=== PATIENT | male | born 1950 | race African-American/Black ===

== ENCOUNTER 2020-11-02 05:55 | Inpatient (IN) | payer MEDICARE, OTHER, SELFPAY ==
[2020-11-02] VITALS (25 sets, daily range): BP systolic 117–149; BP diastolic 64–95; PULSE 96–123; RESP 12–27; TEMP 36.4–38.2; O2SAT 95–100; BMI 31.1
--- NOTE | ~2020-11-02 | XR_ITS ---
EXAMINATION: XR chest 1V portable INDICATION: Shortness of breath TECHNIQUE: Portable AP chest at 0633 hours COMPARISON: 06/01/2019 FINDINGS: 30 minimal airspace opacities of the lung bases. No pleural effusion or pneumothorax is radha ntified. Cardiomegaly is noted. Median sternotomy wires are consistent with prior cardiac surgery. IMPRESSION: 1. Minimal bibasilar airspace opacity, consistent with atelectasis versus pneumonia. Reviewed, dictated and finalized at location A. [facility] IMPRESSION: 1. Minimal bibasilar airspace opacity, consistent with atelectasis versus pneum onia.
--- NOTE | 2020-11-02 06:05 | ED.FEVER ---
HPI - Fever General Chief Complaint: Fever Stated Complaint: Fever Time Seen by Provider: 11/02/20 06:05 Source: patient Mode of arrival: ambulatory Limitations: no limitations History of Present Illness HPI Narrative: Patient is a 70-year-old male with a history of hypertension, hyperlipidemia, type 2 diabetes, heart transplant, HI and cardiac arrest in 2018, congestive heart failure who presents for evaluation of fever as well as cough and mild shortness of breath. Patient states he has had intermittent fever to 102 Fahrenheit over the past 4 days. Patient states that he has had a dry cough and runny nose. He denies any chest pain or abdominal pain. No loss of sense of taste or smell. No dysuria or hematuria. He denies abdominal pain. He does report some nausea with one episode of emesis this morning. Patient has been compliant with all of his medications. No lightheadedness or dizziness. No severe headache or sore throat. No recent sick contacts. He lives with his who is well. He denies any lower leg swelling or leg pain. [facility] [place] [facility] [place]. Related Data Allergies Allergy/AdvReac Type Severity Reaction Status Date / Time lisinopril Allergy Mild cough Verified 06/01/19 03:35 Review of Systems Review of Systems: Narrative: CONSTITUTIONAL: Reports fever and chills EYES: Denies visual changes, redness, or discharge. ENT: Reports rhinorrhea without sore throat CARDIOVASCULAR: Denies chest pain, palpitations, or edema. RESPIRATORY: Reports dry cough and mild shortness of breath GASTROINTESTINAL: Denies abdominal pain, reports nausea and vomiting GENITOURINARY: Denies dysuria or hematuria. SKIN: Denies rash or itching. MUSCULOSKELETAL: Denies back pain, joint pain, reports myalgias NEUROLOGIC: Denies headache, numbness, or weakness. [facility] Past Medical History Medical History Anemia Angina at rest Congestive heart failure Diabetes Gout Heart attack Hyperlipidemia Hypertension Pneumonia Surgical History Surgical History (Updated 11/02/20 @ 06:07 by Elaine Sethi MD) Heart transplanted History of tonsillectomy Exam Narrative: Exam Narrative: GENERAL: Awake, alert, conversant HEAD: Normocephalic, atraumatic. EYES: PERRLA and EOMI. ENT: Nares clear, no rhinorrhea or epistaxis. Mucous membranes moist. NECK: Supple. CHEST: No respiratory distress, breathing even and non labored, no wheezing, no crackles HEART: Tachycardic rate, sinus rhythm ABDOMEN:Non distended, non tender EXTREMITIES: Normal range of motion. No edema. SKIN: Warm, dry, no rash. NEURO:No focal deficits. Alert and oriented x3. Ambulatory, narrow based, steady gait, no ataxia. Full strength in the upper and lower extremities. Course Vital Signs Vital signs: Vital Signs Temperature 38.2 C H 11/02/20 06:00 Pulse Rate 123 H 11/02/20 06:00 Respiratory Rate 12 11/02/20 06:00 Blood Pressure 149/86 H 11/02/20 06:00 Pulse Oximetry 97 11/02/20 06:00 Temperature 38.2 C H 11/02/20 06:00 Pulse Rate 123 H 11/02/20 06:00 Respiratory Rate 14 11/02/20 06:25 Blood Pressure 149/86 H 11/02/20 06:00 Pulse Oximetry 97 11/02/20 06:00 MDM - Fever MDM Narrative Medical decision making narrative: Patient presented for evaluation of fever, cough and shortness of breath. At the time of assessment, patient is febrile and tachycardic. No hypoxia or tachypnea, no franchesca respiratory distress. Patient does not have any focal lung findings on exam. Laboratory results notable for some subtle worsening of his chronic issues such as he has acute on chronic kidney injury with a slightly elevation in creatinine from baseline, he has a chronically elevated troponin, he has an elevated BNP. PT meeting sepsis criteria, however did not want to administer 30 ml/kg fluid bolus as can worsen COVID and given patient's history of heart failure
--- NOTE | 2020-11-02 06:08 | PC.NURSE ---
Pt. cell number is [phone]
--- NOTE | 2020-11-02 06:09 | ECG_ITS ---
Measurements Intervals [place] Rate: 106 P: 2 NV: 124 QRS: 82 QRSD: 149 T: 12 QT: 365 QTc: 485 Interpretive Statements SINUS TACHYCARDIA RIGHT BUNDLE BRANCH BLOCK CONSIDER INFERIOR INFARCT, AGE INDETERMINATE ABNORMAL ECG Electronically Signed On 11-02-2020 7:42:01 VOCATIONAL REHAB CONSULTANT by Carlton Pelaez D.O.
[2020-11-02] MEDS: SODIUM CHLORIDE 0.9% IV 1,000 ML 999 ML IV CONT (06:30)
[2020-11-02 06:33] LABS: Basophils Percent Auto 0.1 % (0.2-1.2); Eosinophils Percent Auto 0.1 % (0-4.4); Hematocrit 38.5 % (42.0-52.0); Hemoglobin 13.3 g/dL (14.0-18.0); Immature Granulocyte Absolute 0.09 K/mm3 (0.00-0.031); Immature Granulocyte Percent A 1.2 % (0-0.5); Immature Platelet Fraction Pct 3.3 % (0.9-11.2); Lymphocytes Absolute Auto 1.43 K/mm3 (0.9-3.2); Lymphocytes Percent Auto 19.6 % (18.3-44.2); Mean Corpuscular HGB Conc 34.5 g/dl (32-36); Mean Corpuscular Hemoglobin 28.5 pg (26-34); Mean Corpuscular Volume 82.6 fl (80-100); Mean Platelet Volume 10.7 fl (7.4-10.4); Monocytes Absolute Auto 1.2 K/mm3 (0.1-0.6); Monocytes Percent Auto 15.8 % (2.6-8.5); Neutrophils Absolute Auto 4.6 K/mm3 (1.3-6.7); Neutrophils Percent Auto 63.2 % (45.5-73.1); Platelet Count Result 105 k/mm3 (150-375); Red Blood Count 4.66 M/mm3 (4.6-6.20); Red Cell Distribution Width 14.8 % (11.5-14.5); White Blood Count 7.3 K/mm3 (4.5-10.0)
[2020-11-02 06:53] LABS: INR 1.2; Prothrombin Time 15.6 Seconds (11.1-14.7)
[2020-11-02 06:54] LABS: Partial Thromboplastin Time 32.5 SECONDS (22.3-36.8)
[2020-11-02 06:57] LABS: Alanine Aminotransferase 43 U/L (4-50); Albumin Level 3.8 g/dL (3.5-5.1); Alkaline Phosphatase 61 U/L (38-126); Anion Gap 8 mmol/L (8-16); Aspartate Amino Transferase 55 U/L (17-59); Bilirubin,Total 0.6 mg/dL (0.2-1.3); Blood Urea Nitrogen 51 mg/dL (9-20); Calcium 8.8 mg/dL (8.4-10.2); Carbon Dioxide 27 mmol/L (22-30); Chloride 100 mmol/L (98-107); Estimated CRCL calculation 22 ml/min; Estimated Glomerular Filt Rate 27; Glucose 144 mg/dL (75-110); Potassium 4.1 mmol/L (3.4-5.0); Sodium 135 mmol/L (137-145)
[2020-11-02 07:03] LABS: NT Pro B Type Natriuretic Pept 1590 PG/ML (5-100); Troponin I 0.045 ng/mL (0.000-0.034)
--- NOTE | 2020-11-02 07:05 | PC.NURSE ---
report to Daniel BUTLER
[2020-11-02 08:23] LABS: Add Urine Microscopic? YES; Appearance Urine Clear (Clear); Bilirubin Urine Negative (Negative); Blood Urine Negative (Negative); Color Urine Yellow (Yellow); Glucose Urine UA 1+ mg/dL (Negative); Ketones Urine Negative (Negative); Leukocyte Esterase Ur Negative LEU/UL (Negative); Mucus Urine Rare /lpf; Nitrate Urine Negative (Negative); Protein Urine 3+ mg/dL (Negative); Specific Grav Ur 1.017 (1.001-1.035); Urobilinogen Urine Negative mg/dL (<2.0); WBC Urine 0-3 /hpf
[2020-11-02 10:35] LABS: Troponin I 0.046 ng/mL (0.000-0.034)
[2020-11-02 12:11] LABS: Glucose Point of Care 165 (65-105)
[2020-11-02 13:14] LABS: Hemoglobin A1C 10.5 % (<5.7)
[2020-11-02 13:31] LABS: Troponin I 0.045 ng/mL (0.000-0.034)
[2020-11-02 16:30] LABS: SARS-CoV-2 RNA PCR Positive
--- NOTE | 2020-11-02 16:31 | PM.IMHP ---
H&P: HPI History of Present Illness Date/Time: 11/02/20 16:31 Chief Complaint: Fever Narrative: Cody Chowdhury Jr. is a 70 year old male male with history hypertension, diabetes, hyperlipidemia, heart transplant 20 years ago, status post cardiac arrest in 2018, he presented emergency department with a complaint fever as high as 102, feeling malaise, fatigue, dry cough and runny nose, patient is suspected having COVID-19 and being isolated in tasted, will follow-up on the test result meanwhile will continue and monitor patient temperature oxygen requirement, if patient is positive further treatment recommendation to follow. Review of Systems Review of Systems: All systems reviewed & are unremarkable except as noted in HPI and below PMFSH Past Medical History Medical History Anemia Angina at rest Congestive heart failure Diabetes Gout Heart attack Hyperlipidemia Hypertension Pneumonia Surgical History Surgical History (Updated 11/02/20 @ 06:07 by Elaine Sethi MD) Heart transplanted History of tonsillectomy Family History Family History (Updated 11/02/20 @ 11:16 by Jemal Solomon RN) Father Pancreatic cancer Sibling Pancreatic cancer Diabetes mellitus Sibling Congestive heart failure Social History Social History Smoking status: Never smoker Second hand tobacco smoke exposure: No Alcohol intake: never Substance use: never Spiritual care concerns: No Meds Home Medications and Allergies Home Medications Medication Instructions Recorded Confirmed Type allopurinol 200 mg PO DAILY 11/02/20 11/02/20 History aspirin [Adult Aspirin] 81 mg PO DAILY 11/02/20 11/02/20 History atorvastatin 40 mg PO HS 11/02/20 11/02/20 History cholecalciferol (vitamin D3) 25 mcg PO DAILY 11/02/20 11/02/20 History clopidogrel 75 mg PO DAILY 11/02/20 11/02/20 History clotrimazole 1 applic TOPICAL BID 11/02/20 11/02/20 History furosemide 20 mg PO DAILY 11/02/20 11/02/20 History insulin aspart U-100 [Novolog See Rx Instructions .ROUTE .COMPLEX 11/02/20 11/02/20 History Flexpen U-100 Insulin] insulin glargine 44 unit SUBCUT QAM 11/02/20 11/02/20 History magnesium oxide 400 mg PO TID 11/02/20 11/02/20 History metoprolol succinate 50 mg PO DAILY 11/02/20 11/02/20 History omega-3 fatty acids-vitamin E 2 cap PO BID 11/02/20 11/02/20 History [Fish Oil] prednisone 5 mg PO DAILY 11/02/20 11/02/20 History semaglutide 0.75 mg SUBCUT WEEKLY 11/02/20 11/02/20 History sildenafil 100 mg PO DAILY PRN 11/02/20 11/02/20 History sirolimus 2 mg PO DAILY 11/02/20 11/02/20 History tacrolimus 0.5 mg PO .QAM 11/02/20 11/02/20 History tacrolimus 1 mg PO Q12H 11/02/20 11/02/20 History tamsulosin 0.4 mg PO HS 11/02/20 11/02/20 History zinc oxide 1 applic TOPICAL DAILY 11/02/20 11/02/20 History Allergies Allergy/AdvReac Type Severity Reaction Status Date / Time lisinopril Allergy Mild Swelling Verified 11/02/20 11:26 Vital Signs Vital Signs - 24 hr 11/02/20 06:00 11/02/20 06:25 11/02/20 07:00 Temperature 100.8 F H Pulse Rate 123 H 108 H Respiratory Rate 12 14 25 H Blood Pressure 149/86 H Pulse Oximetry 97 95 11/02/20 07:14 11/02/20 07:15 11/02/20 07:16 Temperature Pulse Rate 107 H 107 H 107 H Respiratory Rate 25 H 25 H 21 H Blood Pressure 123/86 131/82 Pulse Oximetry 95 95 95 11/02/20 07:30 11/02/20 07:45 11/02/20 07:46 Temperature Pulse Rate 106 H 107 H 108 H Respiratory Rate 23 H 13 21 H Blood Pressure 127/89 Pulse Oximetry 95 11/02/20 08:00 11/02/20 08:01 11/02/20 08:15 Temperature Pulse Rate 106 H 106 H 103 H Respiratory Rate 27 H 22 H 20 Blood Pressure 121/86 Pulse Oximetry 99 97 98 11/02/20 08:16 11/02/20 08:36 11/02/20 08:45 Temperature Pulse Rate 104 H 104 H 103 H Respiratory Rate 19 20 20 Blood Pressure 138/93 H Pulse Oximetry 98 99 99 11/02/20 10:00 11/02/20 10:53 10/12
[2020-11-02 17:02] LABS: Glucose Point of Care 311 (65-105)
[2020-11-02] MEDS: INSULIN ASPART (*BKC) 100 UNITS/ML SUB-Q (17:08)
[2020-11-02] MEDS: MAGNESIUM OXIDE 400 MG TABLET PO (17:08)
[2020-11-02] MEDS: OMEGA 3 POLYUNSAT FATTY ACIDS 1 GM CAP 2 GM PO (17:08)
--- NOTE | 2020-11-02 18:48 | PHAR ---
Tacrolimus and Sirolimus prescription bottles seen in pharmacy and returned to IMU nursing unit
--- NOTE | 2020-11-02 19:04 | ADMGEN ---
This patient, Cody Chowdhury Jr., was admitted to IMU Room 212-01 on 11-02-2020 at 0830. Patient/family oriented to hospital policies and general routines including ID bracelet, bed and alarms, visiting hours, pain management, procedures, bathroom and other care routines, personal items, smoking policy, room service/diet, and visiting hours. Information on how to activate the Rapid Response Team has been discussed. Patient/Family are encouraged to report perceived risks to care and to ask questions if they do not understand what they are told or what they should do.
[2020-11-02 20:09] LABS: Glucose Point of Care 229 (65-105)
[2020-11-02] MEDS: TAMSULOSIN HCL 0.4 MG CAPSULE PO (21:16)
[2020-11-02] MEDS: ATORVASTATIN 40 MG TABLET PO (21:16)
[2020-11-03] VITALS (17 sets, daily range): BP systolic 122–147; BP diastolic 82–95; PULSE 94–118; RESP 16–18; TEMP 36.5–37.9; O2SAT 96–100
--- NOTE | 2020-11-03 00:35 | ECG_ITS ---
Measurements Intervals [place] Rate: 117 P: 29 [place]: 120 QRS: 67 QRSD: 138 T: 12 QT: 343 QTc: 479 Interpretive Statements SINUS TACHYCARDIA POSSIBLE LEFT ATRIAL ENLARGEMENT RIGHT BUNDLE BRANCH BLOCK CONSIDER INFERIOR INFARCT, AGE INDETERMINATE ABNORMAL ECG Electronically Signed On 11-04-2020 11:01:09 PROCESS DEVELOPER by Carlton Pelaez D.O.
[2020-11-03] MEDS: ACETAMINOPHEN 325 MG TABLET 650 MG PO (03:43)
[2020-11-03 07:05] LABS: Basophils Percent Auto 0.2 % (0.2-1.2); Eosinophils Percent Auto 0.2 % (0-4.4); Hematocrit 37.3 % (42.0-52.0); Immature Granulocyte Absolute 0.06 K/mm3 (0.00-0.031); Immature Platelet Fraction Pct 3.7 % (0.9-11.2); Lymphocytes Absolute Auto 1.16 K/mm3 (0.9-3.2); Lymphocytes Percent Auto 19.9 % (18.3-44.2); Mean Corpuscular HGB Conc 34.9 g/dl (32-36); Mean Corpuscular Hemoglobin 28.9 pg (26-34); Mean Corpuscular Volume 82.9 fl (80-100); Mean Platelet Volume 10.3 fl (7.4-10.4); Monocytes Absolute Auto 0.8 K/mm3 (0.1-0.6); Monocytes Percent Auto 14.2 % (2.6-8.5); Neutrophils Absolute Auto 3.8 K/mm3 (1.3-6.7); Neutrophils Percent Auto 64.5 % (45.5-73.1); Platelet Count Result 86 k/mm3 (150-375); Red Cell Distribution Width 14.7 % (11.5-14.5); White Blood Count 5.8 K/mm3 (4.5-10.0)
[2020-11-03 07:26] LABS: Alanine Aminotransferase 43 U/L (4-50); Albumin Level 3.4 g/dL (3.5-5.1); Alkaline Phosphatase 59 U/L (38-126); Anion Gap 10 mmol/L (8-16); Aspartate Amino Transferase 62 U/L (17-59); Bilirubin,Total 0.6 mg/dL (0.2-1.3); Blood Urea Nitrogen 45 mg/dL (9-20); Calcium 8.3 mg/dL (8.4-10.2); Carbon Dioxide 23 mmol/L (22-30); Chloride 100 mmol/L (98-107); Estimated CRCL calculation 25 ml/min; Estimated Glomerular Filt Rate 30; Glucose 194 mg/dL (75-110); Potassium 3.8 mmol/L (3.4-5.0); Sodium 133 mmol/L (137-145)
--- NOTE | 2020-11-03 08:38 | PM.CNCAR ---
Assessment and Plan Assessment and plan (1) Elevated troponin: Code(s): R77.8 - Other specified abnormalities of plasma proteins Status: Acute Assessment and Plan: Flat nonspecific troponin elevation likely secondary to demand ischemia from COVID infection. No chest pain or EKG suggestive of ischemia. (2) Elevated brain natriuretic peptide (BNP) level: Code(s): R79.89 - Other specified abnormal findings of blood chemistry Status: Acute Assessment and Plan: Mildly elevated brain atretic peptide in setting of stage 3 chronic kidney disease. Non-specific. Patient does not appear to be in heart failure (3) Heart transplant recipient: Code(s): Z94.1 - Heart transplant status Status: Acute Assessment and Plan: He follows up at the [facility] and in [place]. I tried to contact the [facility] branch because patient received the transplant heart at that location and the phone number was [phone] however it was a vacation and day of today. And I could not talk to anyone. (4) COVID-19: Code(s): U07.1 - COVID-19 Status: Acute Assessment and Plan: Active COVID infection. He is febrile. Supportive care. History of Present Illness History of Present Illness Consult date/time: Date of ovyfujh26/24/20 08:38 Requesting physician: Lucio Jj MD Consult reason: chest pain Reason For Visit: Sepsis, pneumonia Narrative: this is 70-year-old patient with past medical history gout ,diabetes, CKD stage 3, baseline creatinine around 2.3 to 2.6,hyperlipidemia heart transplant 20 years ago, status post cardiac arrest in 2018, he presented emergency department with a complaint fever as high as 102, feeling malaise, fatigue, dry cough and runny nose, and patient tested positive for COVID. Temperature on admission 38.2 and currently 37.9. oxygen saturation within normal. Denies chest pain. He was complaining of mild shortness of breath. Normal white cell count, platelet count 86 K, troponins x3 0.045, creatinine 2.6, chest x-ray reviewed myself shows minimal infiltrates . EKG reviewed myself shows sinus tachycardia, right bundle branch block. Review of Systems Constitutional: Constitutional: Reports chills, Reports fatigue, Denies fever(s), Denies poor appetite and Reports weakness Eyes: Eyes: Denies eye discharge, Denies loss of vision, Denies eye pain and Denies photophobia ENT: Denies dizziness, Denies epistaxis, Reports nasal congestion, Reports nasal discharge and Denies sore throat Cardiovascular: Cardiovascular: Denies chest pain, Denies syncope, Denies pedal edema, Denies leg edema, Denies palpitations, Denies dyspnea, Denies dyspnea on exertion and Denies orthopnea Respiratory: Respiratory: Denies cough, Reports dyspnea, Reports dyspnea on exertion and Denies wheezing Gastrointestinal: Gastrointestinal: Denies abdominal pain, Denies diarrhea, Denies nausea and Denies vomiting Genitourinary: Genitourinary: Denies hematuria, Denies genital lesions and Denies dysuria Musculoskeletal: Musculoskeletal: Denies arthralgias, Denies joint swelling and Denies numbness Integumentary/Breasts: Skin/Breast: Denies pruritus and Denies rash Neurologic: Denies dizziness, Denies syncope, Denies loss of vision and Denies numbness Psychiatric: Psychiatric: Denies anxiety and Denies depression Endocrine: Endocrine: Denies cold intolerance, Denies heat intolerance and Denies palpitations Hematologic/Lymphatic: Hematologic/Lymphatic: Denies easy bleeding and Denies easy bruising Allergic/Immunologic: Allergic/Immunologic: Denies GI upset with certain foods, Denies urticaria and Denies wheezing PMFSH Past Medical History Medical History Anemia Angina at rest Congestive heart failure Diabetes Gout Heart attack Hyperlipidemia Hypertension Pneumonia Surgical History Surgical H
[2020-11-03] MEDS: INSULIN GLARGINE (*BKC) 100 UNITS/ML 44 UNITS SUB-Q (10:11)
[2020-11-03] MEDS: OMEGA 3 POLYUNSAT FATTY ACIDS 1 GM CAP 2 GM PO ×2 (10:11→17:36)
[2020-11-03] MEDS: MAGNESIUM OXIDE 400 MG TABLET PO ×3 (10:11→17:37)
[2020-11-03] MEDS: allopurinoL 100 MG TABLET 200 MG PO (10:12)
[2020-11-03] MEDS: CLOPIDOGREL BISULFATE 75 MG TABLET PO (10:12)
[2020-11-03] MEDS: predniSONE 5 MG TABLET PO (10:12)
[2020-11-03] MEDS: METOPROLOL SUCCINATE EXT REL 50 MG TABCR PO (10:12)
[2020-11-03] MEDS: FUROSEMIDE 20 MG TABLET PO (10:12)
[2020-11-03] MEDS: ASPIRIN 81 MG ENTERIC TABLET PO (10:12)
[2020-11-03] MEDS: CHOLECALCIFEROL 1,000 UNITS TABLET 1000 UNITS PO (10:12)
[2020-11-03] MEDS: MICONAZOLE NITRATE 2% CREAM 30 GM TUBE 1 APPLIC TOPICAL ×2 (10:14→17:37)
[2020-11-03] MEDS: ZINC OXIDE 20% OINT 30 GM TUBE 1 APPLIC TOPICAL (10:14)
--- NOTE | 2020-11-03 11:25 | PM.CNPUL ---
Assessment and Plan Additional Plan COVID positivity in this 70-year-old heart transplantation ( 20 years ago for cardiomyopathy) patient. Baseline prednisone 5 mg q.d. dose noted. Oxygenation at this point appears satisfactory. Will follow with you. 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 Ongoing Rx includes prednisone 5 mg q.d. Admitted with some increase in troponin level. COVID found to be positive. Yet oxygenation has remained satisfactory on ambient air. Review of Systems Review of Systems: Narrative: Has not smoked since age 23 or so. FOR[facility]LY [facility], [facility] Past Medical History Medical History Anemia Angina at rest Congestive heart failure Diabetes Gout Heart attack Hyperlipidemia Hypertension Pneumonia Surgical History Surgical History Heart transplanted History of tonsillectomy Family History Family History Father Pancreatic cancer Sibling Pancreatic cancer Diabetes mellitus Sibling Congestive heart failure Social History Social History Smoking status: Never smoker Second hand tobacco smoke exposure: No Alcohol intake: never Substance use: never Spiritual care concerns: No Meds Home Medications and Allergies Home Medications Medication Instructions Recorded Confirmed Type allopurinol 200 mg PO DAILY 11/02/20 11/02/20 History aspirin [Adult Aspirin] 81 mg PO DAILY 11/02/20 11/02/20 History atorvastatin 40 mg PO HS 11/02/20 11/02/20 History cholecalciferol (vitamin D3) 25 mcg PO DAILY 11/02/20 11/02/20 History clopidogrel 75 mg PO DAILY 11/02/20 11/02/20 History clotrimazole 1 applic TOPICAL BID 11/02/20 11/02/20 History furosemide 20 mg PO DAILY 11/02/20 11/02/20 History insulin aspart U-100 [Novolog See Rx Instructions .ROUTE .COMPLEX 11/02/20 11/02/20 History Flexpen U-100 Insulin] insulin glargine 44 unit SUBCUT QAM 11/02/20 11/02/20 History magnesium oxide 400 mg PO TID 11/02/20 11/02/20 History metoprolol succinate 50 mg PO DAILY 11/02/20 11/02/20 History omega-3 fatty acids-vitamin E 2 cap PO BID 11/02/20 11/02/20 History [Fish Oil] prednisone 5 mg PO DAILY 11/02/20 11/02/20 History semaglutide 0.75 mg SUBCUT WEEKLY 11/02/20 11/02/20 History sildenafil 100 mg PO DAILY PRN 11/02/20 11/02/20 History sirolimus 2 mg PO DAILY 11/02/20 11/02/20 History tacrolimus 1 mg PO HS 11/02/20 11/02/20 History tacrolimus 1.5 mg PO QAM 11/02/20 11/02/20 History tamsulosin 0.4 mg PO HS 11/02/20 11/02/20 History zinc oxide 1 applic TOPICAL DAILY 11/02/20 11/02/20 History Allergies Allergy/AdvReac Type Severity Reaction Status Date / Time lisinopril Allergy Mild Swelling Verified 11/02/20 11:26 Vital Signs Vital Signs - 24 hr 11/02/20 12:00 11/02/20 14:00 11/02/20 16:00 Temperature 36.6 C 37.5 C Pulse Rate 98 105 H 113 H Respiratory Rate 18 18 Blood Pressure 127/64 137/95 H Pulse Oximetry 98 100 11/02/20 18:00 11/02/20 20:00 11/02/20 20:14 Temperature 36.4 C Pulse Rate 114 H 118 H 116 H Respiratory Rate 20 Blood Pressure 147/94 H Pulse Oximetry 99 11/02/20 22:00 11/02/20 23:58 11/03/20 00:00 Temperature 36.4 C Pulse Rate 113 H 117 H 117 H Respiratory Rate 18 Blood Pressure 145/81 H Pulse Oximetry 97 11/03/20 00:39 11/03/20 02:00 11/03/20 03:43 Temperature 37.7 C H 37.9 C H Pulse Rate 94 Respiratory Rate Blood Pressure Pulse Oximetry 11/03/20 04:00 11/03/20 06:00 11/03/20 10:12 Temperature 37.9 C H Pulse Rate 114 H 110 H 116 H Respiratory Rate 18 Blood Pressure 142/95 H Pulse Oximetry 96 Exam Narr
--- NOTE | 2020-11-03 12:10 | PM.IMPN ---
Progress Note: A&P Assessment and Plan (1) Fever: Qualifiers: Fever type: unspecified Qualified Code(s): R50.9 - Fever, unspecified Code(s): R50.9 - Fever, unspecified Status: Acute Assessment and Plan: Cody Chowdhury Jr. is a 70 year old male male with history hypertension, diabetes, hyperlipidemia, heart transplant 20 years ago, status post cardiac arrest in 2018, he presented emergency department with a complaint fever as high as 102, feeling malaise, fatigue, dry cough and runny nose, patient is suspected having COVID-19 and being isolated in tasted, will follow-up on the test result meanwhile will continue and monitor patient temperature oxygen requirement, if patient is positive further treatment recommendation to follow. (2) Sepsis: Qualifiers: Acute renal failure type: unspecified Sepsis acute organ dysfunction status: with acute organ dysfunction Sepsis type: sepsis due to unspecified organism Severe sepsis acute organ dysfunction type: acute renal failure Severe sepsis shock status: without septic shock Qualified Code(s): A41.9 - Sepsis, unspecified organism; R65.20 - Severe sepsis without septic shock; N17.9 - Acute kidney failure, unspecified Code(s): A41.9 - Sepsis, unspecified organism Status: Acute Assessment and Plan: Upon arrival ER physician suspected patient may have sepsis however patient has no fever while in the hospital, he is not tachypnea or tachycardia, there is no leukocytosis, chest x-ray does show some infiltrate possibly pneumonia and being treated with Rocephin azithromycin, will follow-up on the blood culture and further recommendation to follow (3) Pneumonia: Qualifiers: Laterality: bilateral Lung location: lower lobe of lung Pneumonia type: due to unspecified organism Qualified Code(s): J18.9 - Pneumonia, unspecified organism Code(s): J18.9 - Pneumonia, unspecified organism Status: Acute Assessment and Plan: Suspect patient may have community-acquired pneumonia versus COVID pneumonia patient being treated azithromycin and Rocephin will continue to monitor repeat chest x-ray (4) Acute kidney injury: Code(s): N17.9 - Acute kidney failure, unspecified Status: Acute Assessment and Plan: Patient with acute on chronic kidney disease most likely secondary to dehydration will gently hydrate the patient and monitor kidney function. (5) Elevated brain natriuretic peptide (BNP) level: Code(s): R79.89 - Other specified abnormal findings of blood chemistry Status: Acute Assessment and Plan: Patient with history heart transplant patient does not appear significantly volume overloaded will continue to monitor (6) Elevated troponin: Code(s): R77.8 - Other specified abnormalities of plasma proteins Status: Acute Assessment and Plan: Mildly elevated and flat with history of chronic kidney disease, heart transplant most likely the baseline tropes, unlikely acute coronary syndrome Additional Plan Will also consult Pulmonary and Cardiology. Monitor BMP and creatinine closely if needed we will consult Nephrology. Subjective Date/time seen: 11/03/20 12:10 Interval history: Patient was seen during my rounds today. Patient has mild shortness of breath no chest pain. Patient denies any abdominal pain nausea vomiting or diarrhea. Patient mood is stable. Review of Systems Review of Systems: All systems reviewed & are unremarkable except as noted in HPI and below Exam Narrative: Exam Narrative: Patient is comfortable, NAD HEENT: eyes are clear and none icteric LUNGS: Normal respiratory effort ABD: Moderately distended Lower extremities: no edema SKIN: nonjaundiced Neuro: grossly intact normal speech. Objective Data Vital Signs Vital Signs: Vital Signs - 24 hr 11/02/20 14:00 11/02/20 16:00 11/02/20 18:00 Temperature 37.5 C Pulse
[2020-11-03] MEDS: INSULIN ASPART (*BKC) 100 UNITS/ML SUB-Q (12:32)
[2020-11-03 12:58] LABS: Anion Gap 12 mmol/L (8-16); Blood Urea Nitrogen 47 mg/dL (9-20); Calcium 8.1 mg/dL (8.4-10.2); Carbon Dioxide 19 mmol/L (22-30); Chloride 99 mmol/L (98-107); Estimated CRCL calculation 25 ml/min; Estimated Glomerular Filt Rate 30; Glucose 279 mg/dL (75-110); Potassium 4.2 mmol/L (3.4-5.0); Sodium 130 mmol/L (137-145)
[2020-11-03 13:09] LABS: Glucose Point of Care 259 (65-105)
[2020-11-03 17:41] LABS: Glucose Point of Care 194 (65-105)
[2020-11-03 20:49] LABS: Glucose Point of Care 232 (65-105)
[2020-11-03] MEDS: ATORVASTATIN 40 MG TABLET PO (21:13)
[2020-11-03] MEDS: TAMSULOSIN HCL 0.4 MG CAPSULE PO (21:13)
[2020-11-04] VITALS (13 sets, daily range): BP systolic 106–131; BP diastolic 78–85; PULSE 99–118; RESP 12–18; TEMP 35.7–37.1; O2SAT 90–99
[2020-11-04 05:20] LABS: Eosinophils Percent Auto 0.9 % (0-4.4); Hematocrit 35.9 % (42.0-52.0); Hemoglobin 12.5 g/dL (14.0-18.0); Immature Granulocyte Absolute 0.06 K/mm3 (0.00-0.031); Immature Granulocyte Percent A 1.4 % (0-0.5); Immature Platelet Fraction Pct 4.9 % (0.9-11.2); Lymphocytes Absolute Auto 1.09 K/mm3 (0.9-3.2); Lymphocytes Percent Auto 25.8 % (18.3-44.2); Mean Corpuscular HGB Conc 34.8 g/dl (32-36); Mean Corpuscular Hemoglobin 28.6 pg (26-34); Mean Corpuscular Volume 82.2 fl (80-100); Mean Platelet Volume 11.1 fl (7.4-10.4); Monocytes Absolute Auto 0.5 K/mm3 (0.1-0.6); Monocytes Percent Auto 12.1 % (2.6-8.5); Neutrophils Absolute Auto 2.5 K/mm3 (1.3-6.7); Neutrophils Percent Auto 59.8 % (45.5-73.1); Platelet Count Result 85 k/mm3 (150-375); Red Blood Count 4.37 M/mm3 (4.6-6.20); Red Cell Distribution Width 14.5 % (11.5-14.5); White Blood Count 4.2 K/mm3 (4.5-10.0)
[2020-11-04 05:34] LABS: Alanine Aminotransferase 39 U/L (4-50); Albumin Level 3.2 g/dL (3.5-5.1); Alkaline Phosphatase 53 U/L (38-126); Anion Gap 5 mmol/L (8-16); Aspartate Amino Transferase 58 U/L (17-59); Bilirubin,Total 0.4 mg/dL (0.2-1.3); Blood Urea Nitrogen 48 mg/dL (9-20); Calcium 8.2 mg/dL (8.4-10.2); Carbon Dioxide 28 mmol/L (22-30); Chloride 98 mmol/L (98-107); Estimated CRCL calculation 25 ml/min; Estimated Glomerular Filt Rate 30; Glucose 158 mg/dL (75-110); Potassium 3.7 mmol/L (3.4-5.0); Sodium 131 mmol/L (137-145)
--- NOTE | 2020-11-04 09:56 | PM.PNPUL ---
Progress Note: A&P Additional Plan Stable. Following. Time Spent With Patient Time with patient: less than 15 minutes Subjective Date/time seen: 11/04/20 09:56 Interval history: Stable. Alert and active. Remains on ambient air. Exam Narrative: Exam Narrative: Active. Sitting up. Alert and talkative. Vitals okay. Objective Data Vital Signs Vital Signs: Vital Signs - 24 hr 11/03/20 10:00 11/03/20 10:12 11/03/20 12:00 Temperature 36.5 C Pulse Rate 112 H 116 H 108 H Respiratory Rate 16 Blood Pressure 147/91 H Pulse Oximetry 98 11/03/20 14:00 11/03/20 15:59 11/03/20 16:00 Temperature 36.6 C Pulse Rate 109 H 109 H 108 H Respiratory Rate 16 Blood Pressure 143/88 H Pulse Oximetry 100 11/03/20 18:00 11/03/20 20:00 11/03/20 22:00 Temperature 36.5 C Pulse Rate 105 H 104 H 101 H Respiratory Rate 18 Blood Pressure 122/83 Pulse Oximetry 98 11/04/20 00:00 11/04/20 02:00 11/04/20 04:00 Temperature 36.3 C L 36.6 C Pulse Rate 101 H 102 H 112 H Respiratory Rate 18 18 Blood Pressure 118/85 120/80 Pulse Oximetry 98 98 11/04/20 06:00 11/04/20 08:00 Temperature 37.1 C Pulse Rate 115 H 108 H Respiratory Rate 12 Blood Pressure 131/82 Pulse Oximetry 98 Intake/Output Intake/Output: Intake & Output 11/01/20 11/02/20 11/03/20 11/04/20 23:59 23:59 23:59 23:59 Intake Total 2940 1690 300 Output Total 1255 1470 600 Balance 1685 220 -300 Meds/Results Medications: Active Medications Generic Name Dose Route Start Last Admin Trade Name Freq PRN Reason Stop Dose Admin Acetaminophen 650 mg 11/02/20 07:34 11/03/20 03:43 Acetaminophen 325 Mg Tablet PO 650 mg Q4H PRN Administration Mild Pain (1-3) or Fever Allopurinol 200 mg 11/03/20 09:00 11/03/20 10:12 Allopurinol 100 Mg Tablet PO 200 mg DAILY NAUN Administration Aspirin 81 mg 11/03/20 09:00 11/03/20 10:12 Aspirin 81 Mg Enteric Tablet PO 81 mg DAILY NAUN Administration Atorvastatin Calcium 40 mg 11/02/20 21:00 11/03/20 21:13 Atorvastatin 40 Mg Tablet PO 40 mg HS NAUN Administration Clopidogrel Bisulfate 75 mg 11/03/20 09:00 11/03/20 10:12 Clopidogrel Bisulfate 75 Mg Tablet PO 75 mg DAILY NAUN Administration Dextrose 12.5 gm 11/02/20 12:28 Dextrose 50% 25 Gm/50 Ml Syringe IV PUSH PRN PRN Hypoglycemia Protocol Fish Oil 2 gm 11/02/20 17:00 11/03/20 17:36 [place] 3 Polyunsat Fatty Acids 1 Gm Cap PO 2 gm BID NAUN Administration Furosemide 20 mg 11/03/20 09:00 11/03/20 10:12 Furosemide 20 Mg Tablet PO 20 mg DAILY NAUN Administration Glucagon 1 mg 11/02/20 12:28 Glucagon For Inj 1 Mg Vial IM PRN PRN Hypoglycemia Protocol Glucose 15 gm 11/02/20 12:28 Glucose Oral Gel 15 Gm Of Glucse In 37.5 Gm Tube PO PRN PRN Hypoglycemia Protocol Azithromycin 500 mg in 250 mls @ 250 mls/hr 11/03/20 12:00 11/03/20 14:37 Zithromax IVPB Infused Q24H NAUN Infusion Vancomycin HCl 1,250 mg in 250 mls @ 200 mls/hr 11/03/20 20:00 11/03/20 22:28 Vancomycin 1,250 Mg/D5w 250 Ml IVPB Infused Q36H NAUN Infusion Dextrose 1,000 mls @ 100 mls/hr 11/02/20 12:28 Dextrose 5% 1,000 Ml IVPB PRN PRN Hypoglycemia Protocol Ceftriaxone Sodium 1 gm/ 100 mls @ 200 mls/hr 11/04/20 09:00 Dextrose IVPB Q24H NAUN Insulin Aspart 2 - 5 units 11/02/20 17:00 11/03/20 17:35 Insulin Aspart (*Bkc) 100 Units/Ml SUB-Q Not Given TID[facility] Protocol Insulin Glargine 44 units 11/03/20 09:00 11/03/20 10:11 Insulin Glargine (*Bkc) 100 Units/Ml SUB-Q 44 units QAM NAUN Administration Magnesium Oxide 400 mg 11/02/20 13:00 11/03/20 17:37 Magnesium Oxide 400 Mg Tablet PO 400 mg TID NAUN Administration Metoprolol Succinate 50 mg 11/03/20 09:00 11/03/20 10:12 Metoprolol Succinate Ext Rel 50 Mg Tabcr PO 50 mg DAILY NAUN Administration
--- NOTE | 2020-11-04 10:20 | PM.IMPN ---
Progress Note: A&P Assessment and Plan (1) Fever: Qualifiers: Fever type: unspecified Qualified Code(s): R50.9 - Fever, unspecified Code(s): R50.9 - Fever, unspecified Status: Acute Assessment and Plan: Cody Chowdhury Jr. is a 70 year old male male with history hypertension, diabetes, hyperlipidemia, heart transplant 20 years ago, status post cardiac arrest in 2018, he presented emergency department with a complaint fever as high as 102, feeling malaise, fatigue, dry cough and runny nose, patient is suspected having COVID-19 and being isolated in tasted, will follow-up on the test result meanwhile will continue and monitor patient temperature oxygen requirement, if patient is positive further treatment recommendation to follow. (2) Sepsis: Qualifiers: Acute renal failure type: unspecified Sepsis acute organ dysfunction status: with acute organ dysfunction Sepsis type: sepsis due to unspecified organism Severe sepsis acute organ dysfunction type: acute renal failure Severe sepsis shock status: without septic shock Qualified Code(s): A41.9 - Sepsis, unspecified organism; R65.20 - Severe sepsis without septic shock; N17.9 - Acute kidney failure, unspecified Code(s): A41.9 - Sepsis, unspecified organism Status: Acute Assessment and Plan: Upon arrival ER physician suspected patient may have sepsis however patient has no fever while in the hospital, he is not tachypnea or tachycardia, there is no leukocytosis, chest x-ray does show some infiltrate possibly pneumonia and being treated with Rocephin azithromycin, will follow-up on the blood culture and further recommendation to follow (3) Pneumonia: Qualifiers: Laterality: bilateral Lung location: lower lobe of lung Pneumonia type: due to unspecified organism Qualified Code(s): J18.9 - Pneumonia, unspecified organism Code(s): J18.9 - Pneumonia, unspecified organism Status: Acute Assessment and Plan: Suspect patient may have community-acquired pneumonia versus COVID pneumonia patient being treated azithromycin and Rocephin will continue to monitor repeat chest x-ray (4) Acute kidney injury: Code(s): N17.9 - Acute kidney failure, unspecified Status: Acute Assessment and Plan: Patient with acute on chronic kidney disease most likely secondary to dehydration will gently hydrate the patient and monitor kidney function. (5) Elevated brain natriuretic peptide (BNP) level: Code(s): R79.89 - Other specified abnormal findings of blood chemistry Status: Acute Assessment and Plan: Patient with history heart transplant patient does not appear significantly volume overloaded will continue to monitor (6) Elevated troponin: Code(s): R77.8 - Other specified abnormalities of plasma proteins Status: Acute Assessment and Plan: Mildly elevated and flat with history of chronic kidney disease, heart transplant most likely the baseline tropes, unlikely acute coronary syndrome Additional Plan Will also consult Pulmonary and Cardiology. Monitor BMP and creatinine closely will consult Nephrology. Subjective Date/time seen: 11/04/20 10:20 Interval history: Patient was seen during my rounds today. Patient has mild shortness of breath no chest pain. Patient denies any abdominal pain nausea vomiting or diarrhea. Patient mood is stable. No new complaint. Review of Systems Review of Systems: Narrative: All review of systems are negative other than as mentioned in the history and physical. Exam Narrative: Exam Narrative: Patient is comfortable, NAD HEENT: eyes are clear and none icteric LUNGS: Normal respiratory effort ABD: Moderately distended Lower extremities: no edema SKIN: nonjaundiced Neuro: grossly intact normal speech. Objective Data Vital Signs Vital Signs: Vital Signs - 24 hr 11/03/20 12:00 11/03/20 14:00 11/03/20 15
[2020-11-04] MEDS: allopurinoL 100 MG TABLET 200 MG PO (12:35)
[2020-11-04] MEDS: METOPROLOL SUCCINATE EXT REL 50 MG TABCR PO (12:36)
[2020-11-04] MEDS: OMEGA 3 POLYUNSAT FATTY ACIDS 1 GM CAP 2 GM PO ×2 (12:36→18:48)
[2020-11-04] MEDS: MAGNESIUM OXIDE 400 MG TABLET PO ×3 (12:36→18:48)
[2020-11-04] MEDS: CLOPIDOGREL BISULFATE 75 MG TABLET PO (12:36)
[2020-11-04] MEDS: predniSONE 5 MG TABLET PO (12:37)
[2020-11-04] MEDS: CHOLECALCIFEROL 1,000 UNITS TABLET 1000 UNITS PO (12:37)
[2020-11-04] MEDS: FUROSEMIDE 20 MG TABLET PO (12:37)
[2020-11-04] MEDS: ASPIRIN 81 MG ENTERIC TABLET PO (12:37)
[2020-11-04] MEDS: INSULIN ASPART (*BKC) 100 UNITS/ML SUB-Q ×2 (12:52→18:48)
[2020-11-04] MEDS: INSULIN GLARGINE (*BKC) 100 UNITS/ML 44 UNITS SUB-Q (12:53)
[2020-11-04 13:32] LABS: Glucose Point of Care 211 (65-105)
[2020-11-04 13:32] LABS: Glucose Point of Care 206 (65-105)
--- NOTE | 2020-11-04 13:40 | PM.PNCARD ---
Progress Note: A&P Assessment and Plan (1) Heart transplant recipient: Code(s): Z94.1 - Heart transplant status Status: Acute Assessment and Plan: Stable. Patient's transplant home medications (tacrolimus, sirolimus) and prednisone have been continued. Will follow at a distance. Please let us know we can be of further assistance. (2) Elevated troponin: Code(s): R77.8 - Other specified abnormalities of plasma proteins Status: Acute Assessment and Plan: Minimally elevated but flat, no evidence of ACS or CHF. (3) Elevated brain natriuretic peptide (BNP) level: Code(s): R79.89 - Other specified abnormal findings of blood chemistry Status: Acute Assessment and Plan: Mildly elevated proBNP but does not appear clinically to be in CHF (4) COVID-19: Code(s): U07.1 - COVID-19 Status: Acute Assessment and Plan: Being treated for possible coexisting pneumonia. Respiratory status is stable. Subjective Date/time seen: 11/04/20 13:40 Follow-up for heart transplant, elevated troponin and BNP Date of service: 11/04/2020 Mr. Chowdhury is feeling fairly good today, not requiring oxygen, here to eat his lunch, mild cough, and occasionally feels a little short of breath. Low-grade fever last night 100.2?. No PND, orthopnea, edema or pain. Review of Systems Constitutional: Constitutional: Reports no additional constitutional complaints, Denies body ache(s) and Denies chills Eyes: Eyes: Reports no additional eye complaints ENT: Denies nasal congestion Cardiovascular: Cardiovascular: Denies chest pain and Denies pedal edema Respiratory: Respiratory: Reports cough and Reports dyspnea Gastrointestinal: Gastrointestinal: Denies abdominal pain Genitourinary: Genitourinary: Denies dysuria Musculoskeletal: Musculoskeletal: Reports no additional musculoskeletal complaints Integumentary/Breasts: Skin/Breast: Denies rash Neurologic: Denies confusion Psychiatric: Psychiatric: Denies behavioral changes Exam Const: General: comfortable and no acute distress HENMT: Mouth: Yes moist mucous membranes Eyes: EOM: EOMs intact bilaterally Neck: Neck: supple and no JVD Thyroid: abnormal thyroid Resp: Effort & Inspection: normal respiratory effort Auscultation: clear to auscultation bilaterally Cardio: Rate: regular rate Rhythm: regular rhythm Heart sounds: no murmurs Other: Distant heart sounds GI: Inspection: non-distended GI Palp: Yes Soft to palpation Skin: General skin exam: normal color and no rashes or lesions noted Neuro: Cognition (Neuro): normal cognition Speech: normal speech Extrem: General: no edema Psych: Affect: normal affect Objective Data Vital Signs Vital Signs: Vital Signs - 24 hr 11/03/20 14:00 11/03/20 15:59 11/03/20 16:00 Temperature 97.9 F Pulse Rate 109 H 109 H 108 H Respiratory Rate 16 Blood Pressure 143/88 H Pulse Oximetry 100 11/03/20 18:00 11/03/20 20:00 11/03/20 22:00 Temperature 97.7 F Pulse Rate 105 H 104 H 101 H Respiratory Rate 18 Blood Pressure 122/83 Pulse Oximetry 98 11/04/20 00:00 11/04/20 02:00 11/04/20 04:00 Temperature 97.3 F L 97.8 F Pulse Rate 101 H 102 H 112 H Respiratory Rate 18 18 Blood Pressure 118/85 120/80 Pulse Oximetry 98 98 11/04/20 06:00 11/04/20 08:00 11/04/20 12:36 Temperature 98.8 F Pulse Rate 115 H 108 H 107 H Respiratory Rate 12 Blood Pressure 131/82 Pulse Oximetry 98 Intake/Output Intake/Output: Intake & Output 11/01/20 11/02/20 11/03/20 11/04/20 23:59 23:59 23:59 23:59 Intake Total 2940 1690 540 Output Total 1255 1470 600 Balance 1685 220 -60 Meds/Results Medications: Active Medications Generic Name Dose Route Start Last Admin Trade Name Yaakovq PRN Reason Stop Dose Admin Acetaminophen 650 mg 11/02/20 07:34 11/03/20 03:43 Acetaminophen 325 Mg Tablet PO 650 mg Q4H PRN Administration Mild
[2020-11-04 19:16] LABS: Glucose Point of Care 280 (65-105)
[2020-11-04 20:37] LABS: Glucose Point of Care 198 (65-105)
[2020-11-04] MEDS: TAMSULOSIN HCL 0.4 MG CAPSULE PO (20:46)
[2020-11-04] MEDS: ATORVASTATIN 40 MG TABLET PO (20:46)
[2020-11-05] VITALS: BP 115/77; PULSE 101; PULSE 99; RESP 16; TEMP 36.3; O2SAT 97
[2020-11-05 02:00] VITALS: PULSE 102
[2020-11-05 04:00] VITALS: BP 113/71; PULSE 101; PULSE 102; RESP 16; TEMP 36.2; O2SAT 96; O2SAT 97
[2020-11-05 06:00] VITALS: PULSE 99
[2020-11-05 07:09] LABS: Tacrolimus Prograf 2.2 mcg/L
[2020-11-05 07:20] LABS: Alanine Aminotransferase 42 U/L (4-50); Albumin Level 3.2 g/dL (3.5-5.1); Alkaline Phosphatase 52 U/L (38-126); Anion Gap 6 mmol/L (8-16); Aspartate Amino Transferase 70 U/L (17-59); Bilirubin,Total 0.4 mg/dL (0.2-1.3); Blood Urea Nitrogen 56 mg/dL (9-20); Calcium 8.2 mg/dL (8.4-10.2); Carbon Dioxide 27 mmol/L (22-30); Chloride 97 mmol/L (98-107); Estimated CRCL calculation 21 ml/min; Estimated Glomerular Filt Rate 25; Glucose 136 mg/dL (75-110); Potassium 3.6 mmol/L (3.4-5.0); Sodium 130 mmol/L (137-145)
[2020-11-05 07:21] LABS: Eosinophils Absolute Auto 0.1 K/mm3 (0-0.3); Eosinophils Percent Auto 1.2 % (0-4.4); Hematocrit 34.2 % (42.0-52.0); Immature Granulocyte Absolute 0.05 K/mm3 (0.00-0.031); Immature Platelet Fraction Pct 5.2 % (0.9-11.2); Lymphocytes Absolute Auto 1.03 K/mm3 (0.9-3.2); Lymphocytes Percent Auto 20.9 % (18.3-44.2); Mean Corpuscular HGB Conc 35.1 g/dl (32-36); Mean Corpuscular Volume 82.6 fl (80-100); Mean Platelet Volume 11.1 fl (7.4-10.4); Monocytes Absolute Auto 0.7 K/mm3 (0.1-0.6); Monocytes Percent Auto 13.4 % (2.6-8.5); Neutrophils Absolute Auto 3.1 K/mm3 (1.3-6.7); Neutrophils Percent Auto 63.5 % (45.5-73.1); Platelet Count Result 88 k/mm3 (150-375); Red Blood Count 4.14 M/mm3 (4.6-6.20); Red Cell Distribution Width 14.6 % (11.5-14.5); White Blood Count 4.9 K/mm3 (4.5-10.0)
[2020-11-05 07:55] LABS: Vancomycin Trough 9.9 ug/mL (10.0-20.0)
[2020-11-05 08:00] VITALS: BP 113/74; PULSE 106; RESP 20; TEMP 36.3; O2SAT 98
[2020-11-05 08:24] LABS: Glucose Point of Care 113 (65-105)
[2020-11-05] MEDS: MAGNESIUM OXIDE 400 MG TABLET PO (08:35)
[2020-11-05] MEDS: ASPIRIN 81 MG ENTERIC TABLET PO (08:35)
[2020-11-05] MEDS: allopurinoL 100 MG TABLET 200 MG PO (08:35)
[2020-11-05] MEDS: METOPROLOL SUCCINATE EXT REL 50 MG TABCR PO (08:35)
[2020-11-05] MEDS: CLOPIDOGREL BISULFATE 75 MG TABLET PO (08:35)
[2020-11-05] MEDS: FUROSEMIDE 20 MG TABLET PO (08:35)
[2020-11-05] MEDS: CHOLECALCIFEROL 1,000 UNITS TABLET 1000 UNITS PO (08:35)
[2020-11-05] MEDS: OMEGA 3 POLYUNSAT FATTY ACIDS 1 GM CAP 2 GM PO (08:35)
--- NOTE | 2020-11-05 10:14 | PM.DS ---
DS: Admitting Diagnosis Admitting Diagnosis Admitting Diagnosis: 1. COVID pneumonia 2. High cholesterol 3. History of diabetes DS: Discharge Diagnosis Discharge Diagnosis (1) Fever: Qualifiers: Fever type: unspecified Qualified Code(s): R50.9 - Fever, unspecified Code(s): R50.9 - Fever, unspecified Status: Acute Assessment and Plan: oCdy Chowdhury Jr. is a 70 year old male male with history hypertension, diabetes, hyperlipidemia, heart transplant 20 years ago, status post cardiac arrest in 2018, he presented emergency department with a complaint fever as high as 102, feeling malaise, fatigue, dry cough and runny nose, patient is suspected having COVID-19 [facility], will follow-up on the test result meanwhile will continue and monitor patient temperature oxygen requirement, if patient is positive further treatment recommendation to follow. (2) Sepsis: Qualifiers: Acute renal failure type: unspecified Sepsis acute organ dysfunction status: with acute organ dysfunction Sepsis type: sepsis due to unspecified organism Severe sepsis acute organ dysfunction type: acute renal failure Severe sepsis shock status: without septic shock Qualified Code(s): A41.9 - Sepsis, unspecified organism; R65.20 - Severe sepsis without septic shock; N17.9 - Acute kidney failure, unspecified Code(s): A41.9 - Sepsis, unspecified organism Status: Acute Assessment and Plan: Upon arrival ER physician suspected patient may have sepsis however patient has no fever while in the hospital, he is not tachypnea or tachycardia, there is no leukocytosis, chest x-ray does show some infiltrate possibly pneumonia and being treated with Rocephin azithromycin, will follow-up on the blood culture and further recommendation to follow (3) Pneumonia: Qualifiers: Laterality: bilateral Lung location: lower lobe of lung Pneumonia type: due to unspecified organism Qualified Code(s): J18.9 - Pneumonia, unspecified organism Code(s): J18.9 - Pneumonia, unspecified organism Status: Acute Assessment and Plan: Suspect patient may have community-acquired pneumonia versus COVID pneumonia patient being treated azithromycin and Rocephin will continue to monitor repeat chest x-ray (4) Acute kidney injury: Code(s): N17.9 - Acute kidney failure, unspecified Status: Acute Assessment and Plan: Patient with acute on chronic kidney disease most likely secondary to dehydration will gently hydrate the patient and monitor kidney function. (5) Elevated brain natriuretic peptide (BNP) level: Code(s): R79.89 - Other specified abnormal findings of blood chemistry Status: Acute Assessment and Plan: Patient with history heart transplant patient does not appear significantly volume overloaded will continue to monitor (6) Elevated troponin: Code(s): R77.8 - Other specified abnormalities of plasma proteins Status: Acute Assessment and Plan: Mildly elevated and flat with history of chronic kidney disease, heart transplant most likely the baseline tropes, unlikely acute coronary syndrome DS: Summary Hospital Course Hospital Course: 70 years old male with history of diabetes history of high cholesterol a history of coronary disease was admitted complaint of shortness of breath patient was found to have ?pneumonia patient was given IV antibiotics and culture were done. Pulmonary service is consulted. Chest x-ray was negative. After treatment patient started feeling better today patient is feeling good oxygenation and normal. It was decided that patient can go home. Patient has no fever for the last 2 days. Patient is discharged home in stable condition. Patient is given p.o. antibiotic. Patient is given p.o. steroids. Patient given Prieb using. Patient is advised to follow-up primary care physician outpatient next week. Patient i
== END 2020-11-05 11:05 | disposition home or self-care (01) | DRG 177 ==
LOC: ANHED 07:23 → ANHIMU 07:55
PROVIDERS: Admitting Provider Family Medicine; Emergency Provider Emergency Medicine; Visit Provider Internal Medicine
DX: U07.1 COVID-19 (principal); J12.89 Other viral pneumonia; N17.9 Acute kidney failure, unspecified; Z94.1 Heart transplant status; I13.0 Hypertensive heart and chronic kidney disease with heart failure and stage 1 through stage 4 chronic kidney disease, or unspecified chronic kidney disease; I50.9 Heart failure, unspecified; E11.22 Type 2 diabetes mellitus with diabetic chronic kidney disease; N18.30 Chronic kidney disease, stage 3 unspecified
CPT/HCPCS: 36415; 71045; 80048; 80053; 80197; 80202; 81001; 83036; 83605; 83880; 84484; 85025; 85055; 85610; 85730; 86140; 87040; 87635; 87804; 93005; 96361; 96365; 96367; 96368; 99285; A9270; C9803; G0378; J0131; J0456; J0696; J1815; J3370; J7030; J7512; U0003

== ENCOUNTER 2020-11-12 10:29 | Inpatient (IN) | payer MEDICARE, OTHER, SELFPAY ==
[2020-11-12] VITALS (20 sets, daily range): BP systolic 123–144; BP diastolic 87–103; PULSE 100–118; RESP 20–36; TEMP 35.8–36.4; O2SAT 92–98
--- NOTE | ~2020-11-12 | CT_ITS ---
EXAMINATION: CT brain wo con DATE: 11/12/2020 12:10 INDICATION: Shortness of breath, weakness and lethargy. TECHNIQUE: Computed tomography (CT) of the head was performed without intravenous contrast. Sagittal and coronal reconstructions were performed. The mA was adjusted according to patient size. Iterative reconstruction technique was employed. The dose-length product was 605.33 mGy-cm. COMPARISON: None FINDINGS: Small region of decreased attenuation with loss of chacon-white matter differentiation along a sulcus i n the right frontal lobe with degree of decreased attenuation less than would be expected for No acut e intracranial hemorrhage or abnormal extra axial fluid collection. Ventricles are normal and symmetr ic. No mass/mass effect. Changes of left intraocular lens replacement. The orbits, paranasal sinuses and mastoid air cells are normal. Intracranial calcified cerebral atherosclerosis is noted. IMPRESSION: 1. Small likely acute infarct in the right frontal lobe. Dr. Payne discussed these findings with Thu Fernandez at 12:39 PM. Reviewed, dictated and finalized at location A. EL PLATER IMPRESSION: 1. Small likely acute infarct in the right frontal lobe. Dr. Payne discussed these findings with Dr. Fernandez at 12:39 PM.
--- NOTE | ~2020-11-12 | XR_ITS ---
EXAMINATION: XR chest 1V portable DATE: 11/12/2020 11:08 INDICATION: COVID positive. Shortness of breath. TECHNIQUE: frontal view of the chest was obtained. COMPARISON: Chest radiograph dated 11/02/2020 FINDINGS: Unchanged elevation of the left hemidiaphragm. New airspace opacities in the right mid to lower and l eft lower lung zones concerning for pneumonia. No pleural effusion or pneumothorax. Cardiomegaly. Med heaven sternotomy wires and mediastinal surgical clips are seen, likely from prior coronary artery bypas s grafting. IMPRESSION: 1. New opacities in the right mid to lower and left lower lung zones concerning for pneumonia with di fferential including less likely pulmonary edema or atelectasis. Reviewed, dictated and finalized at location A. RVISOR HISTOLOGY IMPRESSION: 1. New opacities in the right mid to lower and left lower lung zones concerning for pneumonia with differential including less likely pulmonary edema or atele ctasis.
--- NOTE | ~2020-11-12 | US_ITS ---
EXAMINATION: US carotid duplex BI DATE: 11/13/2020 09:38 INDICATION: Stroke TECHNIQUE: Grayscale, color Doppler, and pulsed Doppler images of the cervical carotid arteries were obtained. The degree of vessel stenosis is placed in one of the following categories: normal, <50%, 5 0-69%, >=70% but less than near-occlusion, near-occlusion, or total occlusion. Note that percent sten osis relative to normal distal artery lumen diameter is indirectly measured from velocity measurement s as described by Nixon, et al. Radiology 2003; [id number]. COMPARISON: None. FINDINGS: RIGHT: The right common carotid artery (CCA) peak systolic velocity (PSV) is 33 cm/s. The right internal car otid artery (ICA) PSV is 22 cm/s. The right ICA end-diastolic velocity (EDV) is 6 cm/s. The right ICA /CCA PSV ratio is 0.7. Grayscale and color Doppler images yield an estimate of <50% diameter reductio n from plaque in the ICA. The external carotid artery (ECA) PSV is 39 cm/s. There is antegrade flow i n the right vertebral artery. LEFT: The left CCA PSV is 44 cm/s. The left ICA PSV is 27 cm/s. The left ICA EDV is 9 cm/s. The left ICA/CC A PSV ratio is 0.6. Grayscale and color Doppler images yield an estimate of <50% diameter reduction f rom plaque in the ICA. The ECA PSV is 25 cm/s. There is antegrade flow in the left vertebral artery. IMPRESSION: 1. <50% stenosis in the right internal carotid artery. 2. <50% stenosis in the left internal carotid artery. 3. Peak systolic peaks appear to vary in velocity suggesting possible pulsus paradoxus with different ial including cardiac tamponade and, acute asthma/COPD exacerbation, constrictive pericarditis, restr ictive cardiomyopathy, acute myocardial infarction, cardiogenic shock, pulmonary embolism and profoun d hypovolemia. Consider further evaluation with either echocardiography or PE protocol CT. Findings w ere discussed with Rita Zamora, the nurse caring for the patient, at 2:24 PM. Reviewed, dictated and finalized at location A. TESTER IMPRESSION: 1. <50% stenosis in the right internal carotid artery. 2. <50% stenosis in the left internal carotid artery. 3. Peak systolic peaks appear to vary in velocity suggesting possible pulsus pa radoxus with differential including cardiac tamponade and, acute asthma/COPD ex acerbation, constrictive pericarditis, restrictive cardiomyopathy, acute myocar dial infarction, cardiogenic shock, pulmonary embolism and profound hypovolemia . Consider further evaluation with either echocardiography or PE protocol CT. F indings were discussed with Rita Zamora, the nurse caring for the patient, at 2:24 PM.
--- NOTE | ~2020-11-12 | XR_ITS ---
EXAMINATION: XR chest 1V portable DATE: 11/13/2020 08:12 INDICATION: COVID 19 pneumonia. Acute respiratory failure. TECHNIQUE: frontal view of the chest was obtained. COMPARISON: Chest radiograph dated 11/12/2020 and 11/02/2020 FINDINGS: Chronic mild elevation of the left hemidiaphragm. No significant interval change accounting for diffe rences in patient positioning in airspace opacities in the bilateral mid and lower lung zones. No ple ural effusion or pneumothorax. The cardiomediastinal silhouette is normal. Median sternotomy wires re portedly related to prior heart transplantation. IMPRESSION: 1. No interval change in opacities in the bilateral mid and lower lung zones consistent with given hi story of pneumonia. Reviewed, dictated and finalized at location A. CY OFFICER IMPRESSION: 1. No interval change in opacities in the bilateral mid and lower lung zones co nsistent with given history of pneumonia.
--- NOTE | ~2020-11-12 | XR_ITS ---
EXAMINATION: XR chest PICC line DATE: 11/13/2020 10:23 INDICATION: PICC line placement TECHNIQUE: frontal view of the chest was obtained. COMPARISON: Chest radiograph dated 11/13/2020 at 8:05 AM and 06/01/2019 FINDINGS: Right upper extremity peripherally inserted central venous catheter (PICC) tip at the caudal superio r vena cava. Chronic elevation of the left hemidiaphragm. Unchanged opacities in the bilateral mid an d lower lung zones. No pleural effusion or pneumothorax. Median sternotomy wires likely related to re ported history of prior heart transplantation. Right coronary artery stenting. IMPRESSION: 1. Right PICC line tip in the caudal superior vena cava. 2. Unchanged opacity in the bilateral mid to lower lung zones consistent with given history of pneumo mabel. Reviewed, dictated and finalized at location A. LITIES ENGINEER IMPRESSION: 1. Right PICC line tip in the caudal superior vena cava. 2. Unchanged opacity in the bilateral mid to lower lung zones consistent with g iven history of pneumonia.
--- NOTE | ~2020-11-12 | CT_ITS ---
EXAMINATION: CT chest wo con DATE: 11/13/2020 15:07 INDICATION: Pericardial effusion, pneumonia TECHNIQUE: Computed tomography (CT) of the chest was performed without intravenous contrast. Addition al 3D reconstructions utilizing coronal maximum intensity projection (MIP) were performed. Automated exposure control and iterative reconstruction technique were employed. The dose-length product was 61 7.01 mGy-cm. COMPARISON: None FINDINGS: Groundglass opacities and consolidation with air bronchograms throughout both lungs with mid to lower lung predominance which could represent either pneumonia or pulmonary edema. No pleural effusion or pneumothorax. Median sternotomy wires which may be related to reported prior heart transplant. Mild c ardiomegaly. Atherosclerotic coronary artery calcifications and stenting along the right coronary art jozef. No pericardial effusion or pericardial calcifications. Thoracic aorta is normal in caliber. No p athologically enlarged thoracic lymphadenopathy. Right upper extremity peripherally inserted central venous catheter (PICC) tip at the superior cavoatrial junction. There is flattening of the inferior v shi cava consistent with hypovolemia. Visualized upper abdomen is otherwise unremarkable. Mild thorac ic spondylosis with chronic appearing mild anterior wedging at T11 and T12. IMPRESSION: 1. Diffuse bilateral lung disease which could represent either pneumonia, pulmonary edema or combinat ion thereof. 2. Mild cardiomegaly. No pericardial effusion or pericardial calcifications. Reviewed, dictated and finalized at location A. OR UI UX DEVELOPER IMPRESSION: 1. Diffuse bilateral lung disease which could represent either pneumonia, pulmo nary edema or combination thereof. 2. Mild cardiomegaly. No pericardial effusion or pericardial calcifications.
--- NOTE | ~2020-11-12 | US_ITS ---
EXAMINATION: US renal BI DATE: 11/13/2020 09:38 INDICATION: Acute on chronic renal failure TECHNIQUE: Multiple grayscale and Doppler ultrasound images of the kidneys were obtained. COMPARISON: 06/02/2019 FINDINGS: The right kidney measures 8.6 x 5.4 x 3.5 cm. The right kidney demonstrates increased paren chymal echogenicity. The left kidney is obscured by bowel gas. There is no hydronephrosis. The bladde r is decompressed by Krause catheter. IMPRESSION: 1. Medical renal disease of the right kidney. Left kidney obscured by bowel gas. Reviewed, dictated and finalized at location A. ING MACHINE ADJUSTER IMPRESSION: 1. Medical renal disease of the right kidney. Left kidney obscured by bowel gas .
[2020-11-12 10:49] LABS: Glucose Point of Care > 500 (65-105)
--- NOTE | 2020-11-12 10:53 | ECG_ITS ---
Measurements Intervals [place] Rate: 117 P: -3 AL: 120 QRS: -28 QRSD: 134 T: -1 QT: 360 QTc: 503 Interpretive Statements SINUS TACHYCARDIA RIGHT BUNDLE BRANCH BLOCK INFERIOR INFARCT, AGE INDETERMINATE BASELINE WANDER- V4-V6 ABNORMAL ECG Electronically Signed On 11-12-2020 14:01:12 [employer] by Carlton Pelaez D.O.
[2020-11-12 11:24] LABS: Basophils Percent Auto 0.1 % (0.2-1.2); Hematocrit 46.5 % (42.0-52.0); Hemoglobin 16.3 g/dL (14.0-18.0); Immature Granulocyte Absolute 0.11 K/mm3 (0.00-0.031); Immature Granulocyte Percent A 1.2 % (0-0.5); Lymphocytes Absolute Auto 0.61 K/mm3 (0.9-3.2); Lymphocytes Percent Auto 6.9 % (18.3-44.2); Mean Corpuscular HGB Conc 35.1 g/dl (32-36); Mean Corpuscular Hemoglobin 28.4 pg (26-34); Mean Corpuscular Volume 81.2 fl (80-100); Mean Platelet Volume 11.9 fl (7.4-10.4); Monocytes Absolute Auto 0.5 K/mm3 (0.1-0.6); Monocytes Percent Auto 5.6 % (2.6-8.5); Neutrophils Absolute Auto 7.6 K/mm3 (1.3-6.7); Neutrophils Percent Auto 86.2 % (45.5-73.1); Nucleated Red Blood Cells Perc 0.2 % (0.0-0.2); Platelet Count Result 158 k/mm3 (150-375); Red Blood Count 5.73 M/mm3 (4.6-6.20); Red Cell Distribution Width 14.7 % (11.5-14.5); White Blood Count 8.9 K/mm3 (4.5-10.0)
--- NOTE | 2020-11-12 11:24 | ED.SOB ---
HPI - SOB/Dyspnea General Chief Complaint: Shortness of Breath/Dyspnea Stated Complaint: sob/covid + Time Seen by Provider: 11/12/20 10:53 History of Present Illness HPI Narrative: 70 yo male w/ h/o diabetes, COVID-19 brought in by EMS from home for confusion and shortness. of breath. He was seen here in 11/02 and diagnosed with COVID-19. Family called for EMS due to increasing confusion. Found to be hypoic on room air. Glucose also noted to be over 500. History severely limited due to mental status. Related Data Home Medications Medication Instructions Recorded Confirmed clopidogrel 75 mg PO DAILY 11/02/20 11/12/20 atorvastatin 80 mg PO HS 11/12/20 11/12/20 Allergies Allergy/AdvReac Type Severity Reaction Status Date / Time lisinopril Allergy Mild Swelling Verified 11/02/20 11:26 Review of Systems Review of Systems: ROS unobtainable: Yes unobtainable due to mental status PMFSH Past Medical History Medical History Anemia Angina at rest BPH (benign prostatic hyperplasia) Congestive heart failure Diabetes Gout Heart attack Hyperlipidemia Hypertension Pneumonia Surgical History Surgical History Heart transplanted History of tonsillectomy Family History Family History Father Pancreatic cancer Sibling Pancreatic cancer Diabetes mellitus Sibling Congestive heart failure Social History Social History Smoking status: Never smoker Second hand tobacco smoke exposure: No Alcohol intake: never Substance use: never Gender identity (if verbalized by the patient): Male Spiritual care concerns: No Exam Const: General: ill appearing acutely Other: Moderate distress. Somnolent. Oriented to self. HENMT: Mouth: Yes dry mucous membranes Eyes: Pupils: Equal, round and reactive pupils present Resp: Effort & Inspection: tachypneic Auscultation: wheezes Cardio: Rate: tachycardic Rhythm: regular rhythm GI: GI Palp: Yes Soft to palpation and No Tenderness to palpation present (GI) Skin: General skin exam: normal color Neuro: General: moves all extremities Other: somnolent Extrem: General: edema (1+ BLE edema) Course Vital Signs Vital signs: Vital Signs Temperature 36.4 C 11/12/20 10:37 Pulse Rate 117 H 11/12/20 10:37 Respiratory Rate 33 H 11/12/20 10:37 Blood Pressure 144/103 H 11/12/20 10:37 Pulse Oximetry 92 11/12/20 10:37 Temperature 35.8 C L 11/12/20 15:45 Pulse Rate 114 H 11/12/20 16:59 Respiratory Rate 29 H 11/12/20 16:59 Blood Pressure 143/94 H 11/12/20 15:45 Pulse Oximetry 94 11/12/20 16:59 MDM - SOB/Dyspnea Differential Diagnosis Differential diagnosis: Likely community acquired pneumonia and other (COVID, DKA, ) Medical Records Attestation: I reviewed the patient's medical records. Lab Data Attestation: I reviewed the patient's lab results. Result diagrams: 11/12/20 11:15 11/12/20 16:25 Labs: Lab Results 11/12/20 11/12/20 11/12/20 Range/Units 10:44 11:15 11:15 WBC 8.9 (4.5-10.0) K/mm3 RBC 5.73 (4.6-6.20) M/mm3 Hgb 16.3 D (14.0-18.0) g/dL Hct 46.5 (42.0-52.0) % MCV 81.2 (80-100) fl MCH 28.4 (26-34) pg MCHC 35.1 (32-36) g/dl RDW 14.7 H (11.5-14.5) % Plt Count 158 D (150-375) k/mm3 MPV 11.9 H (7.4-10.4) fl Immature Gran % (Auto) 1.2 H (0-0.5) % Neut % (Auto) 86.2 H (45.5-73.1) % Lymph % (Auto) 6.9 L (18.3-44.2) % [place] % (Auto) 5.6 (2.6-8.5) % Eos % (Auto) 0.0 (0-4.4) % Baso % (Auto) 0.1 L (0.2-1.2) % Lymph # (Auto) 0.61 L (0.9-3.2) K/mm3 [place] # (Auto) 0.5 (0.1-0.6) K/mm3 Eos # (Auto) 0.0 (0-0.3) K/mm3 Baso # (Auto) 0.0 (0.0-0.1) K/mm3 Abs Immat Gran (auto) 0.11 H (0
[2020-11-12] MEDS: ALBUTEROL SULFATE NEB 2.5 MG/0.5 ML INH 5 MG INHALATION (11:45)
[2020-11-12] MEDS: IPRATROPIUM BR 0.02% INH SOLN 0.5 MG/2.5 ML VIAL INHALATION (11:45)
[2020-11-12 11:47] LABS: Alanine Aminotransferase 45 U/L (4-50); Albumin Level 3.9 g/dL (3.5-5.1); Alkaline Phosphatase 79 U/L (38-126); Anion Gap 20 mmol/L (8-16); Aspartate Amino Transferase 73 U/L (17-59); Bilirubin,Total 0.8 mg/dL (0.2-1.3); Blood Urea Nitrogen 104 mg/dL (9-20); Calcium 9.3 mg/dL (8.4-10.2); Carbon Dioxide 16 mmol/L (22-30); Chloride 94 mmol/L (98-107); Estimated CRCL calculation 15 ml/min; Estimated Glomerular Filt Rate 16; Glucose 718 mg/dL (75-110); Potassium 5.6 mmol/L (3.4-5.0); Sodium 130 mmol/L (137-145)
[2020-11-12 11:51] LABS: Alveolar/Arterial O2 Gradient 235.2 mmHg; Base Excess ABG -12.5 mEq/l (+/-2.0); Fractional Inspired Oxygen 44 %; HCO3 ABG 10.5 mEq/l (22.0-26.0); Oxygen Content ABG 19.9 %vol (16.0-22.0); Oxygen Saturation ABG 91.1 % (95.0-100.0); Oxyhemoglobin 89.3 % THb (90.0-100.0); PO2 ABG 61.9 mmHg (80.0-100.0); PO2 FiO2 Ratio Arterial Blood 1.41 %; Total Hemoglobin 15.9 g/dL (12.0-18.0)
[2020-11-12 11:53] LABS: Device NASAL CANNULA; Modified Allen's Test Pass; Site Drawn LEFT RADIAL
[2020-11-12] MEDS: SODIUM CHLORIDE 0.9% IV 1,000 ML 999 ML IV CONT ×2 (12:47→13:24)
[2020-11-12] MEDS: INSULIN HUMAN REGULAR (*BKC) 100 UNITS/ML 9 UNITS IV PUSH (13:21)
--- NOTE | 2020-11-12 13:30 | PC.NURSE ---
UPDATES GIVEN TO HODA AT [phone]
[2020-11-12 13:58] LABS: Add Urine Microscopic? YES; Amorphous Sediment Urine Few; Appearance Urine Clear (Clear); Bacteria Urine Trace /hpf; Bilirubin Urine Negative (Negative); Blood Urine 2+ (Negative); Color Urine Yellow (Yellow); Glucose Urine UA 3+ mg/dL (Negative); Ketones Urine Trace mg/dL (Negative); Leukocyte Esterase Ur Negative LEU/UL (Negative); Mucus Urine Rare /lpf; Nitrate Urine Negative (Negative); Protein Urine 3+ mg/dL (Negative); RBC Urine 0-2 /hpf (0-2); Specific Grav Ur 1.024 (1.001-1.035); Squamous Epithelial Cell Urine Rare /hpf (Few); Urobilinogen Urine Negative mg/dL (<2.0); WBC Urine 0-3 /hpf
[2020-11-12] MEDS: INSULIN HUMAN REGULAR (*BKC) 100 UNITS in SODIUM CHLORIDE 0.9% IV 99 ML 13.2 UNITS IV CONT (14:05)
[2020-11-12 14:48] LABS: Glucose 690 mg/dL (75-110)
[2020-11-12 15:26] LABS: Glucose Point of Care > 500 (65-105)
--- NOTE | 2020-11-12 15:45 | PC.NURSE ---
Pt admitted to ICU 4 from ED, arrives on BIPAP / and 60%, pt awake but confused, non-verbal. VSS, updated.
[2020-11-12 16:49] LABS: Anion Gap 14 mmol/L (8-16); Blood Urea Nitrogen 101 mg/dL (9-20); Calcium 8.4 mg/dL (8.4-10.2); Carbon Dioxide 14 mmol/L (22-30); Chloride 108 mmol/L (98-107); Estimated CRCL calculation 17 ml/min; Estimated Glomerular Filt Rate 18; Glucose 494 mg/dL (75-110); Phosphorus 5.1 mg/dL (2.5-4.5); Sodium 136 mmol/L (137-145)
--- NOTE | 2020-11-12 17:01 | PM.IMHP ---
H&P: HPI History of Present Illness Date/Time: 11/12/20 17:01 Chief Complaint: Confusion Narrative: Cody Chowdhury Jr. is a 70 year old male on 11/02/2020 with a 102 fever feeling malaise fatigue drug cough runny nose he was tested for COVID-19. He was found to be tested positive for COVID-19 on that day., diabetes, hyperlipidemia, and a heart transplant 20 years ago. Patient also had a cardiac arrest in 2018. With a Zithromax and Rocephin as well. He was discharged on 11/05/2020. The patient also had acute kidney injury at that time did secondary to the dehydration. The patient was sent home on 11/05/2020 in the patient has not been himself. The stated that he has been very weak and is not able to care for self. The patient has not been able to answer questions appropriately for the last couple days. The patient was brought to the emergency room because he has not been himself and has not been answering questions or talking to his . He is however moving all extremities. Would not answer questions for the ER provider today. He was able to tell me his name and date of but was not able to tell me his Saturday more his 's name. He was not able to give me any information. A glucose of 718, 690, and then 494. Patient's creatinine had been 4.5 and is now 4.0. When the patient left here on the is 3.0. Last month his A1c was 10.5. The patient was started on an insulin drip for DKA. ED provider reported to me at 12:18 p.[address] today and the CT of the brain was resulted at 12:[address] of the brain read as small likely acute infarction in the right frontal lobe. Patient is already been on an aspirin and Plavix. 7.340 CO2 was 20 PO2 was 61.9 bicarb 10.5. And is now 14. After reviewing the patient's medications I noticed that he does take p.r.n. prednisone I am not sure if he currently has been on these prednisone tablets. The patient was started on a BiPAP machine from the emergency room. The patient was given albuterol and Atrovent in the emergency room. He was given a L bolus of normal saline and given IV insulin. He is also given Decadron x1. Patient is being admitted to ICU inpatient on the date of service of 11/12/2020 Review of Systems Review of Systems: All systems reviewed & are unremarkable except as noted in HPI and below Constitutional: Constitutional: Reports as per HPI and Reports no additional constitutional complaints Eyes: Eyes: Reports as per HPI and Reports no additional eye complaints ENT: Reports system reviewed and no additional complaints, except as documented and Reports Normal hearing present Cardiovascular: Cardiovascular: Reports no additional cardiovascular complaints Respiratory: Respiratory: Reports no additional respiratory complaints and Reports no additional respiratory complaints Gastrointestinal: Gastrointestinal: Reports as per HPI and Reports no additional gastrointestinal complaints Musculoskeletal: Musculoskeletal: Reports no additional musculoskeletal complaints Integumentary/Breasts: Skin/Breast: Reports system reviewed and no additional complaints, except as docu and Reports as per HPI Neurologic: Reports system reviewed and no additional complaints, except as documented, Reports as per HPI and Reports Normal hearing present Psychiatric: Psychiatric: Reports no additional psychiatric complaints and Reports as per HPI Endocrine: Endocrine: Reports no additional endocrine complaints Hematologic/Lymphatic: Hematologic/Lymphatic: Reports no additional hematologic/lymphatic complaints Allergic/Immunologic: Allergic/Immunologic: Reports no additional allergic/immunologic complaints [facility] Past Medical History Medical History (Updated 11/12/20 @ 17:21 by Yesika Ayala NP) Anemia Angina at rest BPH (benign prostatic hyperplasia) Congestive heart failure Diabetes Gout Heart attack Hyperlipidemia Hypertension Pneumonia Surgical History Surgical Histo
[2020-11-12 18:18] LABS: Glucose Point of Care > 500 (65-105)
[2020-11-12 18:29] LABS: Hemoglobin A1C 11.3 % (<5.7)
[2020-11-12 18:35] LABS: Anion Gap 15 mmol/L (8-16); Blood Urea Nitrogen 105 mg/dL (9-20); Calcium 8.8 mg/dL (8.4-10.2); Carbon Dioxide 12 mmol/L (22-30); Chloride 110 mmol/L (98-107); Estimated CRCL calculation 17 ml/min; Estimated Glomerular Filt Rate 19; Glucose 395 mg/dL (75-110); Potassium 3.9 mmol/L (3.4-5.0); Sodium 137 mmol/L (137-145)
[2020-11-12 20:07] LABS: Glucose Point of Care 385 (65-105)
[2020-11-12] MEDS: INSULIN HUMAN REGULAR (*BKC) 100 UNITS in SODIUM CHLORIDE 0.9% IV 99 ML 20 UNITS IV CONT (21:03)
[2020-11-12] MEDS: SODIUM CHLORIDE 0.9% IV 500 ML 999 ML IV CONT (21:07)
[2020-11-12 22:15] LABS: Add Urine Microscopic? YES; Amorphous Sediment Urine Moderate; Appearance Urine Cloudy (Clear); Bacteria Urine Trace /hpf; Bilirubin Urine Negative (Negative); Blood Urine 2+ (Negative); Color Urine Yellow (Yellow); Glucose Urine UA 3+ mg/dL (Negative); Ketones Urine Negative (Negative); Leukocyte Esterase Ur Negative LEU/UL (NEGATIVE); Mucus Urine Rare /lpf; Nitrate Urine Negative (Negative); Protein Urine 3+ mg/dL (Negative); Squamous Epithelial Cell Urine Rare /hpf (Few); Urobilinogen Urine Negative mg/dL (<2.0); WBC Urine 0-3 /hpf (0-3)
[2020-11-12] MEDS: KCL 20 MEQ/D5/0.45% SOD CHL 1,000 ML 150 ML IV CONT (22:16)
[2020-11-12 22:27] LABS: Glucose Point of Care 241 (65-105)
[2020-11-12 22:27] LABS: Glucose Point of Care 347 (65-105)
[2020-11-13] VITALS (17 sets, daily range): BP systolic 101–166; BP diastolic 76–108; PULSE 86–112; RESP 18–33; TEMP 35.7–39.7; O2SAT 91–100
[2020-11-13 00:04] LABS: Glucose Point of Care 224 (65-105)
[2020-11-13 00:29] LABS: Glucose Point of Care 175 (65-105)
[2020-11-13 02:10] LABS: Anion Gap 12 mmol/L (8-16); Blood Urea Nitrogen 107 mg/dL (9-20); Calcium 8.7 mg/dL (8.4-10.2); Carbon Dioxide 18 mmol/L (22-30); Chloride 111 mmol/L (98-107); Estimated CRCL calculation 17 ml/min; Estimated Glomerular Filt Rate 18; Glucose 184 mg/dL (75-110); Potassium 3.8 mmol/L (3.4-5.0); Sodium 141 mmol/L (137-145)
[2020-11-13 02:36] LABS: Glucose Point of Care 162 (65-105)
[2020-11-13 02:36] LABS: Glucose Point of Care 184 (65-105)
[2020-11-13 03:41] LABS: Glucose Point of Care 133 (65-105)
[2020-11-13] MEDS: INSULIN HUMAN REGULAR (*BKC) 100 UNITS in SODIUM CHLORIDE 0.9% IV 99 ML 8 UNITS IV CONT (04:47)
[2020-11-13] MEDS: KCL 20 MEQ/D5/0.45% SOD CHL 1,000 ML 150 ML IV CONT (04:47)
[2020-11-13 05:23] LABS: Glucose Point of Care 140 (65-105)
[2020-11-13 05:53] LABS: Glucose Point of Care 108 (65-105)
[2020-11-13 06:50] LABS: Glucose Point of Care 94 (65-105)
[2020-11-13 08:07] LABS: Alveolar/Arterial O2 Gradient 444.6 mmHg; Base Excess ABG -8.4 mEq/l (+/-2.0); Fractional Inspired Oxygen 80 %; Oxygen Content ABG 19.2 %vol (16.0-22.0); Oxygen Saturation ABG 97.9 % (95.0-100.0); Oxyhemoglobin 96.3 % THb (90.0-100.0); PO2 ABG 102.3 mmHg (80.0-100.0); PO2 FiO2 Ratio Arterial Blood 1.28 %; Total Hemoglobin 14.1 g/dL (12.0-18.0); pH ABG 7.413 (7.350-7.450)
[2020-11-13 08:08] LABS: Device HIGH FLOW NASAL CANN; PCO2 ABG 22.4 mmHg (35.0-45.0); Site Drawn LEFT BRACHIAL
[2020-11-13] MEDS: SODIUM CHLORIDE 0.9% IV 500 ML 999 ML IV CONT (08:12)
[2020-11-13 08:15] LABS: Basophils Percent Auto 0.1 % (0.2-1.2); Hematocrit 37.7 % (42.0-52.0); Hemoglobin 13.4 g/dL (14.0-18.0); Immature Granulocyte Absolute 0.05 K/mm3 (0.00-0.031); Immature Granulocyte Percent A 0.3 % (0-0.5); Lymphocytes Absolute Auto 0.61 K/mm3 (0.9-3.2); Lymphocytes Percent Auto 4.2 % (18.3-44.2); Mean Corpuscular HGB Conc 35.5 g/dl (32-36); Mean Corpuscular Hemoglobin 28.1 pg (26-34); Mean Platelet Volume 11.7 fl (7.4-10.4); Monocytes Absolute Auto 0.2 K/mm3 (0.1-0.6); Monocytes Percent Auto 1.5 % (2.6-8.5); Neutrophils Absolute Auto 13.5 K/mm3 (1.3-6.7); Neutrophils Percent Auto 93.9 % (45.5-73.1); Platelet Count Result 147 k/mm3 (150-375); Red Blood Count 4.77 M/mm3 (4.6-6.20); Red Cell Distribution Width 14.6 % (11.5-14.5); White Blood Count 14.4 K/mm3 (4.5-10.0)
[2020-11-13 08:34] LABS: Glucose Point of Care 130 (65-105)
[2020-11-13 08:35] LABS: Lactic Acid Reflex 1.5 mmol/L (0.7-2.1)
[2020-11-13 08:36] LABS: Anion Gap 8 mmol/L (8-16); Blood Urea Nitrogen 102 mg/dL (9-20); Calcium 8.5 mg/dL (8.4-10.2); Carbon Dioxide 18 mmol/L (22-30); Chloride 114 mmol/L (98-107); Estimated CRCL calculation 20 ml/min; Estimated Glomerular Filt Rate 23; Glucose 105 mg/dL (75-110); Potassium 4.1 mmol/L (3.4-5.0); Sodium 140 mmol/L (137-145)
[2020-11-13 09:26] LABS: Glucose Point of Care 100 (65-105)
[2020-11-13] MEDS: INSULIN GLARGINE (*BKC) 100 UNITS/ML 44 UNITS SUB-Q (09:27)
[2020-11-13 10:57] LABS: Ferritin > 2000.00 ng/mL (11.1-264)
--- NOTE | 2020-11-13 11:00 | WPDCNINT ---
Assessment and Plan Assessment and plan (1) DKA (diabetic ketoacidoses): Code(s): E11.10 - Type 2 diabetes mellitus with ketoacidosis without coma Status: Acute Assessment and Plan: Patient presented with weakness, confusion, found to be hyperglycemic with blood sugars greater than 700, was found to be in DKA. Patient was given 1 L IV fluid bolus in the ER and started on insulin infusion and transferred to the ICU. Patient was given additional IV fluid bolus of 1.5 L in the ICU, started on IV fluids per DKA protocol. -anion gap closed this morning, patient transition to long-acting insulin and sliding scale insulin. -continue Accu-Cheks -hemoglobin A1c is 11.3 this admission -will have Nutrition and clinical educator evaluate the patient (2) Acute hypoxemic respiratory failure: Code(s): J96.01 - Acute respiratory failure with hypoxia Status: Acute Assessment and Plan: Patient with hypoxic respiratory failure likely related to COVID-19 -chest x-ray shows diffuse bilateral infiltrates -continue vitamin-D -will start bronchodilators -patient on high-flow therapy, 70% FiO2 and 50 L flow rate, O2 sats have been good, ABGs reviewed, it 7.41, pCO2 of 22, PO2 102 -continue azithromycin (3) CVA (cerebral vascular accident): Code(s): I63.9 - Cerebral infarction, unspecified Status: Acute Assessment and Plan: Patient presented with confusion, generalized weakness, CT brain showed acute infarct in the right frontal lobe. -neurology has been consulted -patient will require rehab -continue aspirin and Plavix (4) COVID-19: Code(s): U07.1 - COVID-19 Status: Acute Assessment and Plan: SARS-CoV-2 PCR positive on 11/02/2020: -patient on dexamethasone, -not a candidate for Remdesivir due to his acute on chronic renal failure -patient not a candidate for on Lasix plasma since he is 11 days since being positive -inflammatory markers elevated (5) Heart transplant recipient: Code(s): Z94.1 - Heart transplant status Status: Acute Assessment and Plan: Patient has history of heart transplant, on immunosuppressive therapy with tacrolimus and prednisone -have ordered tacrolimus levels, will discuss with nephrology since patient has acute on chronic renal failure (6) Acute kidney injury: Code(s): N17.9 - Acute kidney failure, unspecified Status: Acute Assessment and Plan: Acute on chronic renal failure, likely related to dehydration from decreased p.o. intake, DKA -patient was given adequate fluids -continue monitor urine output, creatinine and electrolytes -nephrology has been consulted Additional Plan Discussed with family, requests transfer to [place]. Care coordination as contacted [place] for an ICU bed. The [place] choker setter to be calling to discuss the patient before transferring Code status: Full code Critical care time spent: 49 minutes Due to a high probability of clinically significant, life threatening deterioration, the patient required my highest level of preparedness to intervene emergently and I personally spent this critical care time directly and personally managing the patient. This critical care time included obtaining a history; examining the patient; pulse oximetry; ordering and review of studies; arranging urgent treatment with development of a management plan; evaluation of patient's response to treatment; frequent reassessment; and discussions with other providers. It was exclusive of separately billable procedures and treating other patients and teaching time. Please see Assessment and Plan section and the rest of the note for further information on patient assessment and treatment Nitroglycerin Nitrator Operator Batch Consult Note Consult date: 11/13/20 Time Seen: 07:04 Reason for consult: Acute hypoxic respiratory failure, COVID-19 positive on 11/02/2020: Acute stroke, acute on chronic kidney injury, immunosuppressed tacrolimus and prednisone for history o
--- NOTE | 2020-11-13 11:20 | PCPTNOTE ---
Spoke with RN prior to eval. Instructed by RN to hold PT until pm and to check with her then.
--- NOTE | 2020-11-13 12:04 | P.CONNP_ITS ---
Assessment and Plan Assessment and plan (1) Acute kidney injury: Code(s): N17.9 - Acute kidney failure, unspecified Status: Acute Assessment and Plan: * suspect multifactorial etiology: - prerenal factors - DKA/hyperglycemia - infection (COVID-19 +/- pneumonia) * checking urine electrolytes and eosinophils * follow-up on renal ultrasound * agree with checking tacrolimus level * creatinine improving since admission with current therapy * follow trend of repeat labs and UOP (2) Stage 3b chronic kidney disease: Code(s): N18.32 - Chronic kidney disease, stage 3b Status: Acute Assessment and Plan: * baseline creatinine runs ~ 2.2 - 2.6mg/dl - however, on discharge in late October 2020, creatinine was 3.0mg/dl * presumably due to diabetes, hypertension, vascular disease along with immunosuppressive medications(?) (3) Acute hypoxemic respiratory failure: Code(s): J96.01 - Acute respiratory failure with hypoxia Status: Acute Assessment and Plan: * due to COVID-19 * follow respiratory status closeley (4) DKA (diabetic ketoacidoses): Code(s): E11.10 - Type 2 diabetes mellitus with ketoacidosis without coma Status: Acute Assessment and Plan: * resolving * anion gap has closed * switching to SQ insulin from insulin gtt (5) CVA (cerebral vascular accident): Code(s): I63.9 - Cerebral infarction, unspecified Status: Acute Assessment and Plan: * as noted by admission CT scan * Neurology consulted for further evaluation * follow mental status (6) COVID-19: Code(s): U07.1 - COVID-19 Status: Acute Assessment and Plan: * tested positive on 11/02/2020 * on dexamethasone * no remdesivir due to BAYLEE and CKD * not likely a candidate for convalescent plasma given duration of time * follow inflammatory markers (7) Heart transplant recipient: Code(s): Z94.1 - Heart transplant status Status: Acute Assessment and Plan: * checking tacrolimus level * consider holding for now given BAYLEE Family requesting transfer to [facility] since he gets majority of care there. Will continue to follow. History of Present Illness Reason for Consult Consult date: 11/13/20 Reason for consult: acute renal failure (on chronic kidney disease) Chief Complaint Chief complaint: Acute respiratory failure, DKA, COVID 19 History of Present Illness Narrative: The patient is a 70 year old AA male with a past medical history as outlined below Who presented to [facility] Emergency room with complaints of shortness of breath, confusion, and weakness. The patient was recently discharged from [facility] for treatment of COVID pneumonia, acute kidney injury, and presumed sepsis. He responded to appropriate interventions during that hospital stay and was subsequently discharged on 11/05/20. Unfortunately, since his discharge, he apparently has not been doing very well according to family doctor at that he has not been himself in terms of his mental status (not able to answer questions appropriately) and has had ongoing and progressive weakness with an inability to take care of himself. Family also reports that his breathing/respiratory status has been fluctuating as well. For all these reasons, he presented back to the emergency room for further evaluation. Workup and evaluation emergency room demonstrated the patient to be confused as well as tachypneic and hypoxic. Ro
--- NOTE | 2020-11-13 12:04 | PM.CNNEP ---
Assessment and Plan Assessment and plan (1) Acute kidney injury: Code(s): N17.9 - Acute kidney failure, unspecified Status: Acute Assessment and Plan: suspect multifactorial etiology: - prerenal factors - DKA/hyperglycemia - infection (COVID-19 +/- pneumonia) checking urine electrolytes and eosinophils follow-up on renal ultrasound agree with checking tacrolimus level creatinine improving since admission with current therapy follow trend of repeat labs and UOP (2) Stage 3b chronic kidney disease: Code(s): N18.32 - Chronic kidney disease, stage 3b Status: Acute Assessment and Plan: baseline creatinine runs ~ 2.2 - 2.6mg/dl - however, on discharge in late October 2020, creatinine was 3.0mg/dl presumably due to diabetes, hypertension, vascular disease along with immunosuppressive medications(?) (3) Acute hypoxemic respiratory failure: Code(s): J96.01 - Acute respiratory failure with hypoxia Status: Acute Assessment and Plan: due to COVID-19 follow respiratory status closeley (4) DKA (diabetic ketoacidoses): Code(s): E11.10 - Type 2 diabetes mellitus with ketoacidosis without coma Status: Acute Assessment and Plan: resolving anion gap has closed switching to SQ insulin from insulin gtt (5) CVA (cerebral vascular accident): Code(s): I63.9 - Cerebral infarction, unspecified Status: Acute Assessment and Plan: as noted by admission CT scan Neurology consulted for further evaluation follow mental status (6) COVID-19: Code(s): U07.1 - COVID-19 Status: Acute Assessment and Plan: tested positive on 11/02/2020 on dexamethasone no remdesivir due to BAYLEE and CKD not likely a candidate for convalescent plasma given duration of time follow inflammatory markers (7) Heart transplant recipient: Code(s): Z94.1 - Heart transplant status Status: Acute Assessment and Plan: checking tacrolimus level consider holding for now given BAYLEE Family requesting transfer to [facility] since he gets majority of care there. Will continue to follow. History of Present Illness Reason for Consult Consult date: 11/13/20 Reason for consult: acute renal failure (on chronic kidney disease) Chief Complaint Chief complaint: Acute respiratory failure, DKA, COVID 19 History of Present Illness Narrative: The patient is a 70 year old AA male with a past medical history as outlined below Who presented to [facility] Emergency room with complaints of shortness of breath, confusion, and weakness. The patient was recently discharged from [facility] for treatment of COVID pneumonia, acute kidney injury, and presumed sepsis. He responded to appropriate interventions during that hospital stay and was subsequently discharged on 11/05/20. Unfortunately, since his discharge, he apparently has not been doing very well according to family doctor at that he has not been himself in terms of his mental status (not able to answer questions appropriately) and has had ongoing and progressive weakness with an inability to take care of himself. Family also reports that his breathing/respiratory status has been fluctuating as well. For all these reasons, he presented back to the emergency room for further evaluation. Workup and evaluation emergency room demonstrated the patient to be confused as well as tachypneic and hypoxic. Routine blood test demonstrated significant hyperglycemia and and laboratory evidence of diabetic ketoacidosis. These tests also demonstrated a marked decline in his kidney function on top of baseline as well. A CT scan of the brain was done given his confusion which demonstrated an acute infarction in his right frontal lobe. Due to his respiratory status, he was placed on BiPAP and he was started on IV fluid resuscita
[2020-11-13] MEDS: SODIUM CHLORIDE 0.9% IV 1,000 ML 75 ML IV CONT (12:08)
[2020-11-13] MEDS: CENTRAL LINE FLUSH 10 ML IV PUSH ×2 (12:09→20:01)
[2020-11-13 12:59] LABS: Glucose Point of Care 162 (65-105)
--- NOTE | 2020-11-13 13:52 | PCPTNOTE ---
Checked with RN in pm-hold PT/OT until tomorrow due to patient agitation and other pending issues.
--- NOTE | 2020-11-13 14:39 | WPDNEURCNPN ---
Assessment and Plan Assessment and plan (1) CVA (cerebral vascular accident): Code(s): I63.9 - Cerebral infarction, unspecified Status: Acute Additional Plan patient is already on Plavix and aspirin, obtain the MRI of the brain in addition to carotid studies and further studies accordingly Consult date: 11/13/20 Time Seen: 14:00 HPI: Cody Chwodhury Jr. is a 70 year old male admitted to the hospital with fever of 102 generalized fatigue running nose and history of testing for COVID-19 which was positive in addition has history of diabetes mellitus hyperlipidemia and heart transplant about 20 years ago. In 2018 and cardiac arrest he is receiving Zithromax and Rocephin as well was discharged on November 05, 2020 but also had acute kidney injury at that time and to dehydration and he was not by himself was very weak and not able to care for himself though has been able to answer question appropriately for the last couple of days and of brought to the emergency room he was noted to be moving all 4 extremities was able to tell his name and date of appropriately his initial blood sugar was 718 creatinine 4.5 though when he left and it was 3.0 last month his A1c was 10.5 and was started on insulin drip for DKA he had been on prednisone p.r.n. but anyhow he was admitted started on BiPAP in the emergency room along with the other treatment . As mentioned above who he has ongoing history of anemia angina benign prostatic hypertrophy congestive heart failure diabetes mellitus gout hyperlipidemia hypertension and transplantation of the heart Review of Systems Review of Systems: All systems reviewed & are unremarkable except as noted in HPI and below PMFSH Past Medical History Medical History Anemia Angina at rest BPH (benign prostatic hyperplasia) Congestive heart failure Diabetes Gout Heart attack Hyperlipidemia Hypertension Pneumonia Surgical History Surgical History Heart transplanted History of tonsillectomy Family History Family History Father Pancreatic cancer Sibling Pancreatic cancer Diabetes mellitus Sibling Congestive heart failure Social History Social History Smoking status: Never smoker Second hand tobacco smoke exposure: No Alcohol intake: never Substance use: never Gender identity (if verbalized by the patient): Male Spiritual care concerns: No Meds Home Medications and Allergies Home Medications Medication Instructions Recorded Confirmed Type clopidogrel 75 mg PO DAILY 11/02/20 11/12/20 History allopurinol 200 mg PO DAILY 30 Days #30 tablet 11/05/20 11/12/20 Rx aspirin 81 mg PO DAILY 30 Days #30 tablet 11/05/20 11/12/20 Rx azithromycin [Zithromax Z-Chau] 250 mg PO DAILY 5 Days #5 tablet 11/05/20 11/12/20 Rx cholecalciferol (vitamin D3) 1,000 units PO DAILY 30 Days #30 11/05/20 11/12/20 Rx [Vitamin D3] tablet furosemide 20 mg PO DAILY 30 Days #30 tablet 11/05/20 11/12/20 Rx insulin glargine 44 unit SUBCUT QAM 30 Days #1 ml 11/05/20 11/12/20 Rx metoprolol succinate 50 mg PO DAILY 30 Days #30 tablet 11/05/20 11/12/20 Rx omega-3 acid ethyl esters 2 g PO BID 30 Days #120 cap 11/05/20 11/12/20 Rx prednisone 5 mg PO DAILY 30 Days tablet 11/05/20 11/12/20 Rx semaglutide 0.75 mg SUBCUT WEEKLY 30 Days #1 ml 11/05/20 11/12/20 Rx tacrolimus 1 mg PO HS 3 Days #30 cap 11/05/20 11/12/20 Rx tacrolimus 1.5 mg PO QAM 30 Days #30 cap 11/05/20 11/12/20 Rx tamsulosin 0.4 mg PO HS 30 Days #30 cap 11/05/20 11/12/20 Rx atorvastatin 80 mg PO HS 11/12/20 11/12/20 History Allergies Allergy/AdvReac Type Severity Reaction Status Date / Time lisinopril Allergy Mild Swelling Verified 11/02/20 11:26 Vital Signs Vital Signs - 24 hr 11/12/20 14:50 11/12/20 15:05 11/12/20 15:45 Temperature
--- NOTE | 2020-11-13 15:09 | PCOTNOTE ---
Attempted to evaluate patient twice. Nursing declines OT services at this time due to increased anxiety, unstable medical status, and unsure of transfer at this time. Will try again on another date.
--- NOTE | 2020-11-13 17:12 | PM.TDS ---
Transfer Discharge Sum: Prov Provider Date of admission: 11/12/20 12:52 Primary care physician: RAQUEL MARIA,AARON Admitting clinician: Yoni Anthony MD Consults: 11/12/20 Care Coordination Consult Routine Comment: Reason for Consult:: Other Consult to Physician Routine Comment: called consult to the exchange Consulting Provider: Emilia Cason cheese cooker/MD group to consult: Dr. Cason Reason for consultation: Acute on chronic renal failure Has provider been notified: Yes Consult to Physician Routine Comment: mad has been notified of the consult Consulting Provider: Austin Chavez cheese cooker/MD group to consult: dr chavze Reason for consultation: cva Has provider been notified: Yes 11/12/20 13:06 Consult to Physician Routine Comment: Consulting Provider: Farnaz Rodgers Reason for consultation: DKA, respiratory failure Has provider been notified: Yes DS: Admitting Diagnosis Admitting Diagnosis Admitting Diagnosis: COVID-19 pneumonia, DKA, stroke DS: Discharge Diagnosis Discharge Diagnosis (1) DKA (diabetic ketoacidoses): Qualifiers: Diabetes mellitus type: type 2 Diabetes mellitus complication detail: without coma Qualified Code(s): E11.10 - Type 2 diabetes mellitus with ketoacidosis without coma Code(s): E11.10 - Type 2 diabetes mellitus with ketoacidosis without coma Status: Acute (2) COVID-19: Code(s): U07.1 - COVID-19 Status: Acute (3) Acute hypoxemic respiratory failure: Code(s): J96.01 - Acute respiratory failure with hypoxia Status: Acute (4) CVA (cerebral vascular accident): Qualifiers: CVA mechanism: unspecified Qualified Code(s): I63.9 - Cerebral infarction, unspecified Code(s): I63.9 - Cerebral infarction, unspecified Status: Acute (5) Stage 3b chronic kidney disease: Code(s): N18.32 - Chronic kidney disease, stage 3b Status: Acute (6) Pneumonia: Qualifiers: Laterality: bilateral Lung location: lower lobe of lung Pneumonia type: due to unspecified organism Qualified Code(s): J18.9 - Pneumonia, unspecified organism Code(s): J18.9 - Pneumonia, unspecified organism Status: Acute (7) Acute kidney injury: Code(s): N17.9 - Acute kidney failure, unspecified Status: Acute Transfer Discharge Sum: Med Medications Active and Home Medications: Home Medications clopidogrel 75 mg PO DAILY 11/02/20 [History Confirmed 11/12/20] allopurinol 200 mg PO DAILY 30 Days #30 tablet 11/05/20 [Rx Confirmed 11/12/20] aspirin 81 mg PO DAILY 30 Days #30 tablet 11/05/20 [Rx Confirmed 11/12/20] azithromycin [Zithromax Z-Chau] 250 mg PO DAILY 5 Days #5 tablet 11/05/20 [Rx Confirmed 11/12/20] cholecalciferol (vitamin D3) [Vitamin D3] 1,000 units PO DAILY 30 Days #30 tablet 11/05/20 [Rx Confirmed 11/12/20] furosemide 20 mg PO DAILY 30 Days #30 tablet 11/05/20 [Rx Confirmed 11/12/20] insulin glargine 44 unit SUBCUT QAM 30 Days #1 ml 11/05/20 [Rx Confirmed 11/12/20] metoprolol succinate 50 mg PO DAILY 30 Days #30 tablet 11/05/20 [Rx Confirmed 11/12/20] omega-3 acid ethyl esters 2 g PO BID 30 Days #120 cap 11/05/20 [Rx Confirmed 11/12/20] prednisone 5 mg PO DAILY 30 Days tablet 11/05/20 [Rx Confirmed 11/12/20] semaglutide 0.75 mg SUBCUT WEEKLY 30 Days #1 ml 11/05/20 [Rx Confirmed 11/12/20] tacrolimus 1 mg PO HS 3 Days #30 cap 11/05/20 [Rx Confirmed 11/12/20] tacrolimus 1.5 mg PO QAM 30 Days #30 cap 11/05/20 [Rx Confirmed 11/12/20] tamsulosin 0.4 mg PO HS 30 Days #30 cap 11/05/20 [Rx Confirmed 11/12/20] atorvastatin 80 mg PO HS 11/12/20 [History Confirmed 11/12/20] Active Medications Allopurinol (Allopurinol 100 Mg Tablet) 200 mg PO DAILY [facility] Last Admin: 11/13/20 08:13 Dose: Not Given Documented by: Aspirin (Aspirin 81 Mg Enteric Tablet) 81 mg PO DAILY [facility] Last Admin: 11/13/20 08:13 Dose: Not Given Documented by: Atorvastatin Calcium (Atorvastatin 40 Mg T
[2020-11-13] MEDS: INSULIN ASPART (*BKC) 100 UNITS/ML SUB-Q ×2 (17:44→21:13)
[2020-11-13 18:06] LABS: Glucose Point of Care 272 (65-105)
[2020-11-13] MEDS: ATORVASTATIN 40 MG TABLET 80 MG PO (20:01)
[2020-11-13] MEDS: TAMSULOSIN HCL 0.4 MG CAPSULE PO (20:01)
[2020-11-13 21:17] LABS: Glucose Point of Care 211 (65-105)
--- NOTE | 2020-11-13 21:59 | PC.NURSE ---
pt dc to [facility].
[2020-11-15 16:30] LABS: Tacrolimus Prograf 8.7 mcg/L
== END 2020-11-13 22:01 | DRG 177 ==
LOC: ANHED 10:53 → ANHICU 16:01
PROVIDERS: Internal Medicine; Nurse Practitioner; Admitting Provider Internal Medicine; Emergency Provider Emergency Medicine; Visit Provider Internal Medicine
DX: U07.1 COVID-19 (principal); I63.9 Cerebral infarction, unspecified; E11.10 Type 2 diabetes mellitus with ketoacidosis without coma; J96.01 Acute respiratory failure with hypoxia; J18.9 Pneumonia, unspecified organism; N17.9 Acute kidney failure, unspecified; I13.0 Hypertensive heart and chronic kidney disease with heart failure and stage 1 through stage 4 chronic kidney disease, or unspecified chronic kidney disease; N18.4 Chronic kidney disease, stage 4 (severe); Z94.1 Heart transplant status; Z91.14 Patient's other noncompliance with medication regimen; R41.0 Disorientation, unspecified; M62.81 Muscle weakness (generalized); E11.22 Type 2 diabetes mellitus with diabetic chronic kidney disease; I50.9 Heart failure, unspecified; N40.0 Benign prostatic hyperplasia without lower urinary tract symptoms; E86.0 Dehydration; E78.5 Hyperlipidemia, unspecified; I25.2 Old myocardial infarction; D64.9 Anemia, unspecified; Z79.02 Long term (current) use of antithrombotics/antiplatelets; Z79.82 Long term (current) use of aspirin
CPT/HCPCS: 36415; 36569; 36600; 51701; 70450; 71045; 71250; 76775; 80048; 80053; 80197; 81001; 82728; 82805; 82947; 82948; 83036; 83605; 83615; 83735; 84100; 85025; 87086; 92523; 93005; 93880; 94002; 94640; 99285; A9270; C1751; J0131; J0456; J1100; J1815; J3480; J7030